=== PATIENT | female | born 1995 | race Two or more races ===

== ENCOUNTER → 2019-10-31 | Emergency (ER) | payer SELFPAY ==
[~2019-10-31] VITALS: Ht 152.4 cm; Wt 45.4 kg
[~2019-10-31] MED LIST: ACETAMINOPHEN 325 MG TAB PO ONE; ACETAMINOPHEN 500 MG TAB PO ONE; POTASSIUM CHL 20 Meq TABLET PO ONE
[2019-10-31 18:11] LABS: Basophils # (auto) 0 uL; Basophils % (auto) 0.4 % (0.0-2.0); Eosinophils # (auto) 0 uL; Eosinophils % (auto) 0.3 % (0.0-7.0); Hematocrit 32.7 % (36.0-46.0); Hemoglobin 11.1 g/dL (12.2-16.2); Lymphocytes # (auto) 0.8 uL; Lymphocytes % (auto) 11.1 % (10.0-50.0); Mean Corpuscular Hemoglobin 29.7 pg (28.0-32.0); Mean Corpuscular Hgb Conc. 33.8 g/dL (32.0-36.0); Mean Corpuscular Volume 87.7 fL (80.0-100.0); Monocytes # (auto) 0.6 uL; Monocytes % (auto) 9.6 % (0.0-12.0); Neutrophils # (auto) 5.3 uL; Neutrophils % (auto) 78.6 % (37.0-80.0); Nucleated Red Blood Cells % 0.1 %; Platelet Count (auto) 252 10^3/uL (140-450); Red Blood Cells 3.73 10^6/uL (4.0-5.20); Red Cell Distribution Width 13.6 % (11.8-14.3); White Blood Cell 6.8 10^3/uL (4.4-10.8)
[2019-10-31 18:27] LABS: Albumin 3.6 g/dL (3.4-5.0); Calcium 8.4 mg/dL (8.5-10.1)
[2019-10-31 18:30] LABS: BUN/Creatinine Ratio 8.6; Bilirubin, Total 0.4 mg/dL (0.2-1.0); Total Protein 7.9 g/dL (6.4-8.2)
[2019-10-31 22:31] LABS: Urine Bacteria MOD /hpf (None Seen); Urine Blood TRACE /uL (Negative); Urine Mucus FEW (None Seen); Urine Specific Gravity 1.012 (1.001-1.035); Urine WBC 70 /hpf (0 - 5)
[2019-10-31 22:46] LABS: Amphetamine Screen, Urine NEGATIVE (NEGATIVE); Barbiturate Scree,Urine NEGATIVE (NEGATIVE); Benzodiazephine Screen, Urine NEGATIVE (NEGATIVE); Cannabinoid Screen, Urine NEGATIVE (NEGATIVE); Cocaine Screen, Urine NEGATIVE (NEGATIVE); Opiate Scree,Urine NEGATIVE (NEGATIVE); Phencyclidine Screen, Urine NEGATIVE (NEGATIVE)
[2019-11-01 00:15] VITALS: BP 102/60
== END | disposition home or self-care (01) ==
LOC: EDUNIT# 17:11 → ER 17:20 → EDBD 17:20
DX: E87.6 Hypokalemia (principal); D64.9 Anemia, unspecified; R94.5 Abnormal results of liver function studies; Z88.6 Allergy status to analgesic agent
CPT/HCPCS: 36415; 70450; 72125; 80053; 80307; 81001; 83605; 84702; 85025

== ENCOUNTER 2019-11-27 23:10 | Emergency (ER) | payer SELFPAY ==
[~2019-11-27] VITALS: Ht 152.4 cm; Wt 54.4 kg
[2019-11-28] MEDS ORDERED: IOHEXOL 300 MG/ML 100ML BOTTLE IJ ONE (00:14)
[2019-11-28 00:50] LABS: Basophils # (auto) 0 10 ^3/uL (0-0.2); Basophils % (auto) 0.4 % (0.0-2.0); Eosinophils # (auto) 0.3 10 ^3/uL (0-0.8); Eosinophils % (auto) 4.4 % (0.0-7.0); Hemoglobin 12.9 g/dL (12.2-16.2); Lymphocytes # (auto) 1.9 10 ^3/uL (0.4-5.4); Lymphocytes % (auto) 26.8 % (10.0-50.0); Mean Corpuscular Hemoglobin 29.7 pg (28.0-32.0); Mean Corpuscular Hgb Conc. 33.9 g/dL (32.0-36.0); Mean Corpuscular Volume 87.7 fL (80.0-100.0); Monocytes # (auto) 0.6 10 ^3/uL (0-1.3); Monocytes % (auto) 8.7 % (0.0-12.0); Neutrophils # (auto) 4.3 10 ^3/uL (1.6-8.6); Neutrophils % (auto) 59.7 % (37.0-80.0); Platelet Count (auto) 265 10^3/uL (140-450); Red Blood Cells 4.33 10^6/uL (4.0-5.20); White Blood Cell 7.3 10^3/uL (4.4-10.8)
[2019-11-28] MEDS ORDERED: ONDANSETRON HCL 4 MG/2 ML VIAL IV ONE (01:00)
[2019-11-28 01:09] LABS: Alanine Aminotransferase 32 U/L (13-56); Albumin 3.3 g/dL (3.4-5.0); Amylase 67 U/L (25-115); Anion Gap 3 (5-15); Aspartate Aminotransferase 20 U/L (15-37); BUN/Creatinine Ratio 16.7; Blood Alcohol < 3.0 mg/dL (0-5); Blood Urea Nitrogen 9 mg/dL (7-18); Calcium 8.6 mg/dL (8.5-10.1); Carbon Dioxide 29 mmol/L (21-32); Chloride 102 mmol/L (98-107); GFR African American 176 mL/min; GFR Non-African American 145 mL/min; Glucose 114 mg/dL (74-106); Lipase 194 U/L (73-393); Potassium 3.6 mmol/L (3.5-5.1); Sodium 134 mmol/L (136-145)
[2019-11-28 01:12] LABS: Alkaline Phosphatase 80 U/L (45-117); Bilirubin, Total 0.2 mg/dL (0.2-1.0); Total Protein 7.8 g/dL (6.4-8.2)
[2019-11-28 01:13] LABS: Salicylate < 1.7 mg/dL (2.8-20.0)
[2019-11-28 01:14] LABS: Acetaminophen < 2.0 ug/mL (10-30)
[2019-11-28 01:30] VITALS: BP 91/51
[2019-11-28] MEDS ORDERED: LORazepam 0.5 MG TAB PO ONE (01:30)
== END 2019-11-28 02:31 | disposition left against medical advice (07) ==
LOC: ER 23:10 → EDBD 23:10 → EDUNIT# 23:10 → ER 11-28 02:31
DX: R11.10 Vomiting, unspecified (principal); F44.9 Dissociative and conversion disorder, unspecified; Z53.29 Procedure and treatment not carried out because of patient's decision for other reasons; Z88.6 Allergy status to analgesic agent
CPT/HCPCS: 36415; 70491; 80053; 80320; 80329; 82150; 83690; 84702; 85025; 96374

== ENCOUNTER 2020-01-03 08:10 | Emergency (ER) | payer SELFPAY ==
[~2020-01-03] VITALS: Ht 152.4 cm; Wt 45.0 kg
[2020-01-03 08:18] VITALS: BP 102/62
[2020-01-03 08:51] LABS: Basophils # (auto) 0 10 ^3/uL (0-0.2); Basophils % (auto) 0.7 % (0.0-2.0); Eosinophils # (auto) 0.2 10 ^3/uL (0-0.8); Hematocrit 35.8 % (36.0-46.0); Lymphocytes # (auto) 1.2 10 ^3/uL (0.4-5.4); Lymphocytes % (auto) 24.6 % (10.0-50.0); Mean Corpuscular Hemoglobin 29.9 pg (28.0-32.0); Mean Corpuscular Hgb Conc. 33.4 g/dL (32.0-36.0); Mean Corpuscular Volume 89.5 fL (80.0-100.0); Monocytes # (auto) 0.5 10 ^3/uL (0-1.3); Monocytes % (auto) 10.3 % (0.0-12.0); Neutrophils % (auto) 60.4 % (37.0-80.0); Nucleated Red Blood Cells % 0.2 %; Platelet Count (auto) 270 10^3/uL (140-450); Red Cell Distribution Width 14.2 % (11.8-14.3); White Blood Cell 4.9 10^3/uL (4.4-10.8)
[2020-01-03 09:10] LABS: Albumin 3.7 g/dL (3.4-5.0); Calcium 8.4 mg/dL (8.5-10.1); Potassium 3.5 mmol/L (3.5-5.1)
[2020-01-03 09:13] LABS: BUN/Creatinine Ratio 12.1; Bilirubin, Total 0.3 mg/dL (0.2-1.0); Total Protein 7.8 g/dL (6.4-8.2)
[2020-01-03 09:13] LABS: Urine Bacteria NONE SEEN /hpf (None Seen); Urine Blood 3+ /uL (Negative); Urine Mucus FEW (None Seen); Urine Specific Gravity 1.025 (1.001-1.035); Urine WBC 259 /hpf (0 - 5); Urine WBC Clumps PRESENT /hpf (None Seen)
== END 2020-01-03 09:36 | disposition home or self-care (01) ==
LOC: ER 08:10
DX: N39.0 Urinary tract infection, site not specified (principal)
CPT/HCPCS: 36415; 80053; 81001; 81025; 83690; 84702; 85025

== ENCOUNTER 2020-01-16 14:21 | Emergency (ER) | payer SELFPAY ==
[~2020-01-16] VITALS: Ht 149.9 cm; Wt 44.9 kg
[2020-01-16 16:01] LABS: Urine Bacteria MOD /hpf (None Seen); Urine Blood Negative /uL (Negative); Urine Mucus FEW (None Seen); Urine Specific Gravity 1.028 (1.001-1.035); Urine WBC 28 /hpf (0 - 5)
[2020-01-16 17:10] VITALS: BP 95/61
== END 2020-01-16 17:14 | disposition home or self-care (01) ==
LOC: ER 14:21
DX: R42 Dizziness and giddiness (principal); N39.0 Urinary tract infection, site not specified
CPT/HCPCS: 70450; 81001; 81025

== ENCOUNTER 2020-04-08 11:50 | Emergency (ER) | payer SELFPAY ==
[~2020-04-08] VITALS: Ht 124.5 cm; Wt 42.6 kg
[2020-04-08 12:49] VITALS: BP 105/59
== END 2020-04-08 13:13 | disposition home or self-care (01) ==
LOC: ER 11:50
DX: Z32.01 Encounter for pregnancy test, result positive (principal); R11.2 Nausea with vomiting, unspecified; Z88.6 Allergy status to analgesic agent
CPT/HCPCS: 81002; 81025

== ENCOUNTER 2020-05-17 12:54 | Inpatient (IN) | payer MEDICAID ==
[~2020-05-17] VITALS: Ht 124.5 cm; Wt 48.5 kg
[2020-05-17 13:49] LABS: Urine Amorphous Crystal FEW /hpf (None Seen); Urine Bacteria FEW /hpf (None Seen); Urine Blood Negative /uL (Negative); Urine Mucus FEW (None Seen); Urine Specific Gravity 1.021 (1.001-1.035); Urine WBC 23 /hpf (0 - 5); Urine WBC Clumps PRESENT /hpf (None Seen)
[2020-05-17] MEDS ORDERED: ONDANSETRON HCL 4 MG/2 ML VIAL ONE (14:11)
[2020-05-17 14:26] LABS: Albumin 3.6 g/dL (3.4-5.0); Calcium 8.8 mg/dL (8.5-10.1)
[2020-05-17 14:29] LABS: BUN/Creatinine Ratio 12.8; Bilirubin, Total 0.3 mg/dL (0.2-1.0); Total Protein 7.8 g/dL (6.4-8.2)
[2020-05-17 14:30] LABS: Basophils # (auto) 0 10 ^3/uL (0-0.2); Basophils % (auto) 0.2 % (0.0-2.0); Eosinophils # (auto) 0.3 10 ^3/uL (0-0.8); Eosinophils % (auto) 2.5 % (0.0-7.0); Hematocrit 35.6 % (36.0-46.0); Hemoglobin 11.8 g/dL (12.2-16.2); Lymphocytes # (auto) 2.3 10 ^3/uL (0.4-5.4); Lymphocytes % (auto) 22.8 % (10.0-50.0); Mean Corpuscular Hgb Conc. 33.3 g/dL (32.0-36.0); Mean Corpuscular Volume 90.2 fL (80.0-100.0); Monocytes # (auto) 0.7 10 ^3/uL (0-1.3); Monocytes % (auto) 6.8 % (0.0-12.0); Neutrophils % (auto) 67.7 % (37.0-80.0); Platelet Count (auto) 293 10^3/uL (140-450); Red Blood Cells 3.95 10^6/uL (4.0-5.20); Red Cell Distribution Width 14.4 % (11.8-14.3); White Blood Cell 10.3 10^3/uL (4.4-10.8)
[2020-05-17] MEDS ORDERED: ONDANSETRON HCL 4 MG/2 ML VIAL IV ONE (14:30)
[2020-05-17] MEDS ORDERED: SODIUM CHLORIDE 0.9% 1,000 ML IV ONE ×2 (14:45→21:00)
[2020-05-17 15:07] LABS: Potassium 2.8 mmol/L (3.5-5.1)
[2020-05-17] MEDS ORDERED: SODIUM CHLORIDE 0.9% 1,000 ML IVB ONE (15:07)
[2020-05-17] MEDS ORDERED: MEPERIDINE HCL (25 MG/ML) 1ML VIAL IM ONE (16:00)
[2020-05-17] MEDS ORDERED: PROMETHAZINE HCL 25 MG/ML 1ML IM ONE (16:00)
[2020-05-17] MEDS: POTASSIUM CHL 20MEQ/100ML 100 ML IV SCH ×2 (18:00→20:47)
[2020-05-17] MEDS ORDERED: PROMETHAZINE HCL 25 MG/ML 1ML IV ONE (21:00)
[2020-05-17] MEDS ORDERED: ONDANSETRON HCL 4 MG/2 ML VIAL IV PRN (23:15)
[2020-05-17] MEDS ORDERED: DOCUSATE SOD 100 MG CAP PO PRN (23:15)
--- NOTE | 2020-05-18 00:15 | NUR ---
MS admit from [facility] admitted to [facility] after SBAR received. Patient oriented to BRYON JOHNSON, RN primary RN, unit, room, bed, and unit policies regarding patient care and visiting hours. Patient encouraged to call if they need something, all questions and concerns addressed, patient verbalized understanding. Will continue to monitor.
[2020-05-18 00:20] VITALS: BP 112/71
[2020-05-18] MEDS: ACETAMINOPHEN 325 MG TAB PO PRN ×3 (00:35→21:29)
--- NOTE | 2020-05-18 00:35 | NUR ---
Pain Medication Administration Patient complaining of abdominal pain 10/10. Patient requesting Tylenol. Educated patient regarding pain and pain medications. Patient verbalized understanding, continues to request Tylenol. Will administer pain medication per MD order and will continue to monitor.
[2020-05-18] MEDS: SODIUM CHLORIDE 0.9% 1,000 ML IV SCH ×3 (00:59→17:48)
[2020-05-18] MEDS ORDERED: MULT-1018 PO (01:14)
--- NOTE | 2020-05-18 01:35 | NUR ---
Pain Level Reassessment Patient asleep for pain level reassessment. Pain rated to be 0/10 using Flacc Pain Scale. No signs or symptoms of distress noted. Will continue to monitor.
[2020-05-18 05:00] VITALS: BP 95/58
--- NOTE | 2020-05-18 08:00 | NUR ---
Opening Shift Note Assumed care of patient, asleep, even, unlabored respirations. No S/S of distress/SOB or pain. Bed in lowest/locked position, bed rails up x2, call light within reach. Will continue to monitor for changes Q1hr and PRN.
[2020-05-18 08:09] LABS: Basophils # (auto) 0 10 ^3/uL (0-0.2); Basophils % (auto) 0.2 % (0.0-2.0); Eosinophils # (auto) 0 10 ^3/uL (0-0.8); Eosinophils % (auto) 0.3 % (0.0-7.0); Hematocrit 30.4 % (36.0-46.0); Hemoglobin 10.1 g/dL (12.2-16.2); Lymphocytes # (auto) 1.3 10 ^3/uL (0.4-5.4); Lymphocytes % (auto) 11.5 % (10.0-50.0); Mean Corpuscular Hemoglobin 29.9 pg (28.0-32.0); Mean Corpuscular Hgb Conc. 33.3 g/dL (32.0-36.0); Mean Corpuscular Volume 89.8 fL (80.0-100.0); Monocytes # (auto) 0.6 10 ^3/uL (0-1.3); Monocytes % (auto) 5.3 % (0.0-12.0); Neutrophils # (auto) 9.6 10 ^3/uL (1.6-8.6); Neutrophils % (auto) 82.7 % (37.0-80.0); Platelet Count (auto) 220 10^3/uL (140-450); Red Blood Cells 3.39 10^6/uL (4.0-5.20); White Blood Cell 11.6 10^3/uL (4.4-10.8)
[2020-05-18 08:28] LABS: Potassium 3.4 mmol/L (3.5-5.1)
[2020-05-18 08:38] LABS: BUN/Creatinine Ratio 7.4; Calcium 7.8 mg/dL (8.5-10.1)
[2020-05-18 09:00] VITALS: BP 93/56
[2020-05-18] MEDS ORDERED: PRENATAL VITAMIN TAB PO ONE (11:00)
--- NOTE | 2020-05-18 11:10 | NUR ---
ROUNDS DR GIPSON DISCUSSING POC WITH THIS RN. NEW ORDERS RECEIVED/WILL CARRY OUT. WILL CONTINUE TO MONITOR
--- NOTE | 2020-05-18 12:41 | NUR ---
Nutrition Consult Monitor pt po intake and tolerance of diet. pt reports nausea and vomiting is better Est energy needs 7828-0097 kcal (30-35 kcal/kg BW 48.5kg) Est protein needs 49-58g (1-1.2g/kg BW 48.5kg) Will reassess prn. Addendum: 05/18/20 at [address] Amended: Links added.
[2020-05-18] MEDS: POTASSIUM CHL 20MEQ/100ML 100 ML IV SCH ×2 (12:43→14:20)
[2020-05-18 12:47] VITALS: BP 83/42
[2020-05-18] MEDS ORDERED: CEFTRIAXONE SODIUM 2 GM in D5W 5% 50 ML IV ONE (13:00)
--- NOTE | 2020-05-18 13:00 | NUR ---
MD ROUNDS DR ESTRADA AT BEDSIDE DISCUSSING POC WITH PATIENT. NEW ORDERS RECEIVED/WILL CARRY OUT. WILL CONTINUE TO MONITOR
[2020-05-18] MEDS ORDERED: cefTRIAXone 1GM/50ML D5W 50 ML IV ONE (13:15)
[2020-05-18 17:00] VITALS: BP 88/58
--- NOTE | 2020-05-18 21:29 | NUR ---
Pain Medication Administration Patient complaining of abdominal pain 05/22. Patient requesting Tylenol. Will administer pain medication per MD order and will continue to monitor.
[2020-05-18 22:00] VITALS: BP 95/55
--- NOTE | 2020-05-18 22:29 | NUR ---
Pain Level Reassessment Patient's pain level reassessed to be 1/10. No signs or symptoms of distress noted. Will continue to monitor.
[2020-05-19] MEDS: SODIUM CHLORIDE 0.9% 1,000 ML IV SCH ×2 (03:30→14:58)
[2020-05-19 05:00] VITALS: BP 84/52
[2020-05-19 05:39] LABS: Potassium 3.6 mmol/L (3.5-5.1)
[2020-05-19 05:42] LABS: BUN/Creatinine Ratio 16.7
[2020-05-19 05:47] LABS: % Iron Saturation 11.4 % (15-50)
[2020-05-19 06:26] VITALS: BP 94/56
--- NOTE | 2020-05-19 07:45 | NUR ---
Opening shift note Assumed care of patient from NOC RN. Patient is AOx4, so s/s of SOB or distress noted. Bed is in lowest locked position, side rails up x2, and call light is within reach. Educated patient on how to use call light, patient verbalized understanding. Updated patient on plan of care, patient verbalized understanding. Will continue to monitor q1hr and PRN.
[2020-05-19 09:00] VITALS: BP 84/48
[2020-05-19] MEDS: PANTOPRAZOLE 40 MG/10 ML VIAL INJ IV SCH (09:41)
[2020-05-19] MEDS: PRENATAL VITAMIN TAB PO SCH (09:41)
[2020-05-19 13:00] VITALS: BP 90/53
--- NOTE | 2020-05-19 13:00 | NUR ---
Paged Pagekeith Ervin awaiting call back.
--- NOTE | 2020-05-19 16:45 | NUR ---
Paged Pagekeith Ervin awaiting call back.
[2020-05-19 17:00] VITALS: BP 100/63
--- NOTE | 2020-05-19 17:55 | NUR ---
Spoke with family Spoke with patients mother per patient request. Updated Hayley about patient status, Hayley verbalized understanding.
--- NOTE | 2020-05-19 19:03 | NUR ---
End of shift note Endorsed care to NOC CHANDRIKA Jimenez. No s/s of distress noted.
--- NOTE | 2020-05-19 19:15 | NUR ---
Opening Shift Note Assumed care of patient, awake and alert. No S/S of distress/SOB or pain. Instructed on POC and to call for assist PRN, will continue to monitor for changes Q1hr and PRN. Patient in the lowest possible position with call light within reach.
[2020-05-19 21:53] VITALS: BP 109/55
[2020-05-20] MEDS: SODIUM CHLORIDE 0.9% 1,000 ML IV SCH ×2 (01:18→11:08)
--- NOTE | 2020-05-20 04:00 | NUR ---
Patient to be observed over night for blood pressure as she was having low BP. Patients blood pressure has been going up. Latest BP was 109/55, will continue to monitor. Addendum: 05/20/20 at 0401 by Barbara Alex RN Amended: Links added.
[2020-05-20 04:30] VITALS: BP 98/56
[2020-05-20 06:16] LABS: Basophils # (auto) 0 10 ^3/uL (0-0.2); Basophils % (auto) 0.3 % (0.0-2.0); Eosinophils # (auto) 0.3 10 ^3/uL (0-0.8); Eosinophils % (auto) 4.5 % (0.0-7.0); Hematocrit 28.8 % (36.0-46.0); Lymphocytes # (auto) 1.7 10 ^3/uL (0.4-5.4); Lymphocytes % (auto) 25.2 % (10.0-50.0); Mean Corpuscular Hemoglobin 30.9 pg (28.0-32.0); Mean Corpuscular Hgb Conc. 34.8 g/dL (32.0-36.0); Mean Corpuscular Volume 88.8 fL (80.0-100.0); Monocytes # (auto) 0.4 10 ^3/uL (0-1.3); Monocytes % (auto) 6.5 % (0.0-12.0); Neutrophils # (auto) 4.3 10 ^3/uL (1.6-8.6); Neutrophils % (auto) 63.5 % (37.0-80.0); Platelet Count (auto) 231 10^3/uL (140-450); Red Blood Cells 3.24 10^6/uL (4.0-5.20); Red Cell Distribution Width 14.3 % (11.8-14.3); White Blood Cell 6.8 10^3/uL (4.4-10.8)
[2020-05-20 06:34] LABS: Magnesium 1.9 mg/dL (1.6-2.6); Potassium 3.4 mmol/L (3.5-5.1)
[2020-05-20 09:00] VITALS: BP 93/60
[2020-05-20] MEDS ORDERED: FERROUS SULFATE 325 MG TAB PO ONE (09:30)
[2020-05-20] MEDS ORDERED: POTASSIUM CHL 20 Meq TABLET PO ONE (09:30)
[2020-05-20] MEDS: PRENATAL VITAMIN TAB PO SCH (10:04)
[2020-05-20] MEDS: PANTOPRAZOLE 40 MG/10 ML VIAL INJ IV SCH (10:04)
--- NOTE | 2020-05-20 10:55 | NUR ---
Physician rounding Dr. Christian at bedside. MD Updated patient on plan of care and patient verbalized understanding. Will continue to monitor q1hr and PRN.
[2020-05-20] MEDS ORDERED: FERROUS SULFATE 325 MG TAB PO SCH (12:00)
[2020-05-20 13:00] VITALS: BP_SYST 110; BP_SYST 93; BP_DIAS 58; BP_DIAS 59
[2020-05-20 14:23] VITALS: BP 93/58
--- NOTE | 2020-05-20 15:10 | NUR ---
Discharge note Discharge instructions given as ordered. Encourage to follow up with PMD as instructed. All questions and concerns addressed. Patient verbalized understanding. IV removed with catheter intact, pressure dressing applied. Patient stated "I want to walk and wait at the lobby" all personal belongings with patient, accompanied by staff member. No distress noted at time of departure.
--- NOTE | 2020-05-20 15:16 | NUR ---
assessment Patient is a 24 year old female who is alert and oriented. Patients cognitive abilities are intact. Prior to admission patient lived home with family and functioned independently. Patient informed me she is able to care for her own ADLs. Per patient she will return home to her prior living arrangements post discharge and family will transport her home. Patient has no insurance. Patient will be assessed by Robson Guerrero of [facility]. Patient will qualify for [employer]. Patient has already applied for Medi-nehemias since she is . I have provided patient with resources for [facility], Dr[facility] Damico, and [facility] urgent care for follow up visits. I have provided patient with a prescription card from community assistance program.I informed patient she has a right to speak to a social services regarding all care. I informed patient she has a right to participate in any and all discharge planning. Patient does not have a POA and advanced directive. I have offered patient information on POA and advanced directives. I informed the patient the advantages and benefits of having an Advanced Directive. Patient verbalized understanding and agreed to discharge plan. Addendum: 05/20/20 at 1519 by Rajwinder CHAPARRO Amended: Links added.
== END 2020-05-20 15:10 | disposition home or self-care (01) | DRG 566 ==
LOC: ER 12:54 → WEST WING 12:55
PROVIDERS: ADMIT Hospitalist; ATTEND Internal Medicine Nephrology
DX: O21.1 Hyperemesis gravidarum with metabolic disturbance (principal); R65.10 Systemic inflammatory response syndrome (SIRS) of non-infectious origin without acute organ dysfunction; E86.0 Dehydration; E66.9 Obesity, unspecified; O99.281 Endocrine, nutritional and metabolic diseases complicating pregnancy, first trimester; Z3A.11 11 weeks gestation of pregnancy; O99.211 Obesity complicating pregnancy, first trimester; D50.9 Iron deficiency anemia, unspecified; O99.011 Anemia complicating pregnancy, first trimester; Z88.5 Allergy status to narcotic agent; Z82.49 Family history of ischemic heart disease and other diseases of the circulatory system
CPT/HCPCS: 36415; 76801; 80048; 80053; 80061; 81001; 83540; 83550; 83735; 84132; 84439; 84443; 84702; 85025; 99291; C9113; G0378; J0696; J2405; J3480; J7060

== ENCOUNTER 2020-06-27 23:21 | Emergency (ER) | payer MEDICAID ==
[~2020-06-27] VITALS: Ht 149.9 cm; Wt 48.5 kg
[~2020-06-27 23:21] MED LIST changes: -ACETAMINOPHEN 325 MG TAB PO ONE; -ACETAMINOPHEN 500 MG TAB PO ONE; +MULT-1018 PO; -POTASSIUM CHL 20 Meq TABLET PO ONE
[2020-06-27 23:43] LABS: Urine WBC None Seen /hpf (0 - 5)
[2020-06-27] MEDS ORDERED: SODIUM CHLORIDE 0.9% 1,000 ML IV ONE (23:45)
[2020-06-27] MEDS ORDERED: ACETAMINOPHEN 325 MG TAB PO ONE (23:45)
[2020-06-27] MEDS ORDERED: PROMETHAZINE HCL 25 MG/ML 1ML IV ONE (23:45)
[2020-06-27 23:49] LABS: Basophils # (auto) 0 10 ^3/uL (0-0.2); Basophils % (auto) 0.3 % (0.0-2.0); Eosinophils # (auto) 0.3 10 ^3/uL (0-0.8); Eosinophils % (auto) 2.1 % (0.0-7.0); Hematocrit 34.6 % (36.0-46.0); Hemoglobin 11.8 g/dL (12.2-16.2); Lymphocytes # (auto) 2.4 10 ^3/uL (0.4-5.4); Lymphocytes % (auto) 15.5 % (10.0-50.0); Monocytes # (auto) 0.7 10 ^3/uL (0-1.3); Monocytes % (auto) 4.5 % (0.0-12.0); Neutrophils # (auto) 11.9 10 ^3/uL (1.6-8.6); Neutrophils % (auto) 77.6 % (37.0-80.0); Platelet Count (auto) 285 10^3/uL (140-450); Red Cell Distribution Width 14.4 % (11.8-14.3); White Blood Cell 15.3 10^3/uL (4.4-10.8)
[2020-06-28 00:04] LABS: Urine Bacteria NONE SEEN /hpf (None Seen); Urine Blood Negative /uL (Negative); Urine Specific Gravity 1.016 (1.001-1.035); Urine WBC Clumps PRESENT /hpf (None Seen)
[2020-06-28 00:07] LABS: Albumin 3.5 g/dL (3.4-5.0); Calcium 9.3 mg/dL (8.5-10.1); Potassium 3.5 mmol/L (3.5-5.1)
[2020-06-28 00:09] LABS: Alcohol, Urine < 3.0 mg/dL (0-10); Amphetamine Screen, Urine NEGATIVE (NEGATIVE); Barbiturate Scree,Urine NEGATIVE (NEGATIVE); Benzodiazephine Screen, Urine NEGATIVE (NEGATIVE); Cannabinoid Screen, Urine NEGATIVE (NEGATIVE); Cocaine Screen, Urine NEGATIVE (NEGATIVE); Opiate Scree,Urine NEGATIVE (NEGATIVE); Phencyclidine Screen, Urine NEGATIVE (NEGATIVE)
[2020-06-28 00:10] LABS: BUN/Creatinine Ratio 14.9; Bilirubin, Total 0.2 mg/dL (0.2-1.0); Total Protein 7.7 g/dL (6.4-8.2)
[2020-06-28] MEDS ORDERED: SODIUM CHLORIDE 0.9% 1,000 ML IV ONE ×2 (00:15→03:00)
[2020-06-28] MEDS ORDERED: PROMETHAZINE HCL 25 MG/ML 1ML IV ONE (00:15)
[2020-06-28] MEDS ORDERED: cefTRIAXone 1GM/50ML D5W 50 ML IV ONE (01:15)
--- NOTE | 2020-06-28 03:30 | NUR ---
Request from SHUN Box for UC pattern tracing on patient. Patient gives OB history of with 2 SAB's, 18.2 weeks EGA patient of clinic in [place]. Patient denies knowing the name of her primary OB. TOCO placed on patient and patient monitored for 30 minutes. 3 mild UC's traced lasting 40 seconds. Uterine irritability noted. Patient's abdomen palpates relaxed and soft between UC's. Strip reviewed with primary RN, Josefina and Attending Isauro HOFFMANN. Isauro HOFFMANN encouraged to follow up with steam bone press tender OB.
[2020-06-28] MEDS ORDERED: TERBUTALINE SULFATE 1 MG/ML 1ML VIAL SC ONE (03:45)
[2020-06-28 05:39] VITALS: BP 95/59
== END 2020-06-28 05:45 | disposition home or self-care (01) ==
LOC: ER 23:22
DX: O23.32 Infections of other parts of urinary tract in pregnancy, second trimester (principal); O47.9 False labor, unspecified; O99.012 Anemia complicating pregnancy, second trimester; J45.909 Unspecified asthma, uncomplicated; Z98.890 Other specified postprocedural states; Z3A.17 17 weeks gestation of pregnancy
CPT/HCPCS: 36415; 76805; 80053; 80307; 81001; 82150; 83690; 84702; 85025; 96361; 96365; 96372; 96375; 96376; 99285; J0696; J2550; J3105; J7030

== ENCOUNTER 2020-10-30 19:24 | Observation (INO) | payer MEDICAID ==
[~2020-10-30] VITALS: Ht 149.9 cm; Wt 66.7 kg
[2020-10-30] MEDS ORDERED: TERBUTALINE SULFATE 1 MG/ML 1ML VIAL SC SCH (21:30)
[2020-10-30] MEDS ORDERED: TERBUTALINE SULFATE 1 MG/ML 1ML VIAL SC ONE (21:40)
== END 2020-10-30 23:22 | disposition home or self-care (01) ==
LOC: ER 19:24 → LDRP 19:43 → ER 19:43 → LDRP 19:45
PROVIDERS: ADMIT Obstetrics & Gynecology; ATTEND Obstetrics & Gynecology
DX: O36.8130 Decreased fetal movements, third trimester, not applicable or unspecified (principal); O99.513 Diseases of the respiratory system complicating pregnancy, third trimester; J45.909 Unspecified asthma, uncomplicated; Z3A.34 34 weeks gestation of pregnancy; Z79.899 Other long term (current) drug therapy
CPT/HCPCS: 59025; 76818; 81002; 82962; 96372; 99284; G0378; J3105

== ENCOUNTER 2021-03-13 21:35 | Emergency (ER) | payer MEDICAID ==
[~2021-03-13] VITALS: Ht 165.1 cm; Wt 52.2 kg
[2021-03-13] MEDS ORDERED: ALBUTEROL SULF 2.5 MG/0.5ML(0.5%) NEB SOLN NEB ONE (22:00)
[2021-03-13] MEDS ORDERED: IPRATROPIUM BROM 0.5 MG/2.5ML INH SOL NEB ONE (22:00)
[2021-03-13 22:18] LABS: Basophils # (auto) 0 10 ^3/uL (0-0.2); Basophils % (auto) 0.5 % (0.0-2.0); Eosinophils # (auto) 0.4 10 ^3/uL (0-0.8); Eosinophils % (auto) 5.9 % (0.0-7.0); Hematocrit 36.7 % (36.0-46.0); Lymphocytes % (auto) 30.9 % (10.0-50.0); Mean Corpuscular Hemoglobin 30.9 pg (28.0-32.0); Mean Corpuscular Hgb Conc. 35.4 g/dL (32.0-36.0); Mean Corpuscular Volume 87.2 fL (80.0-100.0); Monocytes # (auto) 0.6 10 ^3/uL (0-1.3); Monocytes % (auto) 9.2 % (0.0-12.0); Neutrophils # (auto) 3.4 10 ^3/uL (1.6-8.6); Neutrophils % (auto) 53.5 % (37.0-80.0); Platelet Count (auto) 324 10^3/uL (140-450); Red Blood Cells 4.21 10^6/uL (4.0-5.20); Red Cell Distribution Width 13.7 % (11.8-14.3); White Blood Cell 6.4 10^3/uL (4.4-10.8)
[2021-03-13 22:23] LABS: Albumin 3.9 g/dL (3.4-5.0); BUN/Creatinine Ratio 16.1; Calcium 9.1 mg/dL (8.5-10.1); Potassium 3.4 mmol/L (3.5-5.1)
[2021-03-13 22:26] LABS: Bilirubin, Total 0.2 mg/dL (0.2-1.0); Total Protein 8.8 g/dL (6.4-8.2)
[2021-03-14] MEDS ORDERED: methylPREDNISolone SOD SUCC 125 MG/2 ML VL IM ONE (01:15)
[2021-03-14 01:30] VITALS: BP 106/71
[2021-03-14] MEDS ORDERED: IPRATROPIUM BROM 0.5 MG/2.5ML INH SOL NEB ONE (04:00)
[2021-03-14] MEDS ORDERED: ALBUTEROL SULF 2.5 MG/0.5ML(0.5%) NEB SOLN NEB ONE (04:00)
[2021-03-14] MEDS ORDERED: guaiFENesin-DM 100/10mg/5ml SYR PO ONE (04:00)
== END 2021-03-14 04:56 | disposition home or self-care (01) ==
LOC: ER 21:35
DX: J45.909 Unspecified asthma, uncomplicated (principal); T50.B95A Adverse effect of other viral vaccines, initial encounter; Y92.89 Other specified places as the place of occurrence of the external cause
CPT/HCPCS: 36415; 71045; 80053; 85025; 85049; 94640; 96372; 99284; J2930; J7644

== ENCOUNTER 2021-03-30 21:31 | Emergency (ER) | payer MEDICAID ==
[~2021-03-30] VITALS: Ht 154.9 cm; Wt 47.2 kg
[2021-03-31 01:58] VITALS: BP 91/60
[2021-03-31] MEDS ORDERED: IPRATROPIUM BROM 0.5 MG/2.5ML INH SOL NEB ONE (02:15)
[2021-03-31] MEDS ORDERED: ALBUTEROL SULF 2.5 MG/0.5ML(0.5%) NEB SOLN NEB ONE (02:15)
== END 2021-03-31 04:28 | disposition home or self-care (01) ==
LOC: ER 21:32
DX: J45.901 Unspecified asthma with (acute) exacerbation (principal)
CPT/HCPCS: 94640; 99283; J7644

== ENCOUNTER 2021-08-02 23:27 | Emergency (ER) | payer MEDICAID ==
[~2021-08-02] VITALS: Ht 157.5 cm; Wt 47.2 kg
[2021-08-03 02:40] VITALS: BP 101/69
== END 2021-08-03 03:19 | disposition home or self-care (01) ==
LOC: ER 23:27
DX: H10.213 Acute toxic conjunctivitis, bilateral (principal); L30.9 Dermatitis, unspecified; Z57.5 Occupational exposure to toxic agents in other industries; J45.909 Unspecified asthma, uncomplicated; Z79.899 Other long term (current) drug therapy; Z88.5 Allergy status to narcotic agent

== ENCOUNTER 2021-08-28 00:29 | Emergency (ER) | payer MEDICAID ==
[~2021-08-28] VITALS: Ht 149.9 cm; Wt 46.3 kg
[2021-08-28] MEDS ORDERED: ALBUAER3 IN (03:33)
[2021-08-28 03:39] VITALS: BP 102/70
== END 2021-08-28 03:51 | disposition home or self-care (01) ==
LOC: ER 00:29
DX: J45.909 Unspecified asthma, uncomplicated (principal); Z76.0 Encounter for issue of repeat prescription; Z79.899 Other long term (current) drug therapy; Z88.5 Allergy status to narcotic agent

== ENCOUNTER 2021-11-11 02:56 | Emergency (ER) | payer MEDICAID ==
[~2021-11-11] VITALS: Ht 154.9 cm; Wt 45.4 kg
[~2021-11-11 02:56] MED LIST changes: +ALBUAER3 IN
[2021-11-11 03:42] LABS: Basophils # (auto) 0 10 ^3/uL (0-0.2); Basophils % (auto) 0.3 % (0.0-2.0); Eosinophils # (auto) 0.4 10 ^3/uL (0-0.8); Eosinophils % (auto) 5.6 % (0.0-7.0); Hematocrit 34.8 % (36.0-46.0); Hemoglobin 11.8 g/dL (12.2-16.2); Lymphocytes % (auto) 31.4 % (10.0-50.0); Mean Corpuscular Hemoglobin 29.9 pg (28.0-32.0); Mean Corpuscular Hgb Conc. 33.9 g/dL (32.0-36.0); Mean Corpuscular Volume 88.3 fL (80.0-100.0); Monocytes # (auto) 0.5 10 ^3/uL (0-1.3); Monocytes % (auto) 7.8 % (0.0-12.0); Neutrophils # (auto) 3.5 10 ^3/uL (1.6-8.6); Neutrophils % (auto) 54.9 % (37.0-80.0); Red Blood Cells 3.95 10^6/uL (4.0-5.20); Red Cell Distribution Width 13.6 % (11.8-14.3); White Blood Cell 6.4 10^3/uL (4.4-10.8)
[2021-11-11 03:59] LABS: Albumin 3.7 g/dL (3.4-5.0); BUN/Creatinine Ratio 13.8; Calcium 9.4 mg/dL (8.5-10.1); Potassium 3.6 mmol/L (3.5-5.1)
[2021-11-11 04:02] LABS: Bilirubin, Total 0.2 mg/dL (0.2-1.0); Total Protein 7.5 g/dL (6.4-8.2)
[2021-11-11 05:58] LABS: Urine Bacteria FEW /hpf (None Seen); Urine Blood Negative /uL (Negative); Urine Mucus FEW (None Seen); Urine Specific Gravity 1.021 (1.001-1.035); Urine WBC 21 /hpf (0 - 5); Urine WBC Clumps PRESENT /hpf (None Seen)
[2021-11-11 07:07] VITALS: BP 92/52
[2021-11-11] MEDS ORDERED: cefTRIAXone 1GM/50ML D5W 50 ML IV ONE (08:15)
[2021-11-11] MEDS ORDERED: MECLIZINE HCL 25 MG TAB PO ONE (08:15)
== END 2021-11-11 09:10 | disposition home or self-care (01) ==
LOC: ER 03:00
DX: H81.10 Benign paroxysmal vertigo, unspecified ear (principal); N39.0 Urinary tract infection, site not specified; J45.909 Unspecified asthma, uncomplicated; Z79.899 Other long term (current) drug therapy; Z88.5 Allergy status to narcotic agent
CPT/HCPCS: 36415; 70450; 80053; 81001; 84702; 85025; 96365; 99284; J0696; J8597

== ENCOUNTER 2022-05-06 00:50 | Emergency (ER) | payer MEDICAID ==
[~2022-05-06] VITALS: Ht 154.9 cm; Wt 46.2 kg
[2022-05-06 01:02] VITALS: BP 105/66
[2022-05-06 01:52] LABS: Basophils # (auto) 0 10 ^3/uL (0-0.2); Basophils % (auto) 0.4 % (0.0-2.0); Eosinophils # (auto) 0.3 10 ^3/uL (0-0.8); Eosinophils % (auto) 4.8 % (0.0-7.0); Hematocrit 34.9 % (36.0-46.0); Hemoglobin 11.8 g/dL (12.2-16.2); Lymphocytes # (auto) 2.3 10 ^3/uL (0.4-5.4); Lymphocytes % (auto) 36.4 % (10.0-50.0); Mean Corpuscular Hemoglobin 29.8 pg (28.0-32.0); Mean Corpuscular Hgb Conc. 33.9 g/dL (32.0-36.0); Mean Corpuscular Volume 87.8 fL (80.0-100.0); Monocytes # (auto) 0.6 10 ^3/uL (0-1.3); Monocytes % (auto) 8.8 % (0.0-12.0); Neutrophils # (auto) 3.1 10 ^3/uL (1.6-8.6); Neutrophils % (auto) 49.6 % (37.0-80.0); Nucleated Red Blood Cells % 0.1 %; Red Blood Cells 3.97 10^6/uL (4.0-5.20); White Blood Cell 6.3 10^3/uL (4.4-10.8)
[2022-05-06 02:16] LABS: Albumin 4.1 g/dL (3.4-5.0); Calcium 9.1 mg/dL (8.5-10.1); Potassium 3.8 mmol/L (3.5-5.1)
[2022-05-06 02:18] LABS: BUN/Creatinine Ratio 25.5
[2022-05-06 02:21] LABS: Bilirubin, Total 0.2 mg/dL (0.2-1.0)
== END 2022-05-06 03:00 | disposition left against medical advice (07) ==
LOC: ER 00:50
DX: R07.89 Other chest pain (principal); R42 Dizziness and giddiness; Z53.21 Procedure and treatment not carried out due to patient leaving prior to being seen by health care provider
CPT/HCPCS: 36415; 71045; 80053; 83880; 84484; 85025; 93005

== ENCOUNTER 2023-01-14 03:48 | Observation (INO) | payer MEDICAID ==
[~2023-01-14] VITALS: Ht 154.9 cm; Wt 52.2 kg
[2023-01-14 05:59] LABS: Urine Bacteria MOD /hpf (None Seen); Urine Blood Negative /uL (Negative); Urine Specific Gravity 1.005 (1.001-1.035); Urine WBC 4 /hpf (0 - 5)
[2023-01-14 06:07] LABS: Alcohol, Urine < 3.0 mg/dL (0-10); Amphetamine Screen, Urine NEGATIVE (NEGATIVE); Barbiturate Scree,Urine NEGATIVE (NEGATIVE); Benzodiazephine Screen, Urine NEGATIVE (NEGATIVE); Cannabinoid Screen, Urine NEGATIVE (NEGATIVE); Cocaine Screen, Urine NEGATIVE (NEGATIVE); Opiate Scree,Urine NEGATIVE (NEGATIVE); Phencyclidine Screen, Urine NEGATIVE (NEGATIVE)
== END 2023-01-14 06:41 | disposition home or self-care (01) ==
LOC: LDRP 03:48
PROVIDERS: ADMIT Obstetrics & Gynecology; ATTEND Obstetrics & Gynecology
DX: O26.892 Other specified pregnancy related conditions, second trimester (principal); R10.30 Lower abdominal pain, unspecified; Z3A.23 23 weeks gestation of pregnancy
CPT/HCPCS: 59025; 80307; 81001; 81002; 82948; 94760; G0378

== ENCOUNTER 2023-02-27 16:20 | Observation (INO) | payer MEDICAID ==
[2023-02-27] MEDS ORDERED: PREN-96 PO (16:55)
== END 2023-02-27 17:03 | disposition home or self-care (01) ==
LOC: LDRP 16:20
PROVIDERS: ADMIT Obstetrics & Gynecology; ATTEND Obstetrics & Gynecology
DX: O62.9 Abnormality of forces of labor, unspecified (principal); Z3A.30 30 weeks gestation of pregnancy
CPT/HCPCS: 59025; 81002; 82962; 94760; G0378

== ENCOUNTER 2024-04-21 23:02 | Inpatient (IN) | payer MEDICAID ==
[~2024-04-21] VITALS: Ht 154.9 cm; Wt 48.0 kg
[~2024-04-21 23:02] MED LIST changes: +PREN-96 PO
[2024-04-21 23:57] LABS: Basophils # (auto) 0 10 ^3/uL (0-0.2); Basophils % (auto) 0.2 % (0.0-2.0); Eosinophils # (auto) 0.2 10 ^3/uL (0-0.8); Eosinophils % (auto) 2.5 % (0.0-7.0); Hematocrit 37.3 % (36.0-46.0); Hemoglobin 12.7 g/dL (12.2-16.2); Lymphocytes # (auto) 3.2 10 ^3/uL (0.4-5.4); Lymphocytes % (auto) 36.6 % (10.0-50.0); Mean Corpuscular Hemoglobin 30.2 pg (28.0-32.0); Mean Corpuscular Volume 88.8 fL (80.0-100.0); Monocytes # (auto) 0.6 10 ^3/uL (0-1.3); Monocytes % (auto) 7.1 % (0.0-12.0); Neutrophils # (auto) 4.7 10 ^3/uL (1.6-8.6); Neutrophils % (auto) 53.6 % (37.0-80.0); Platelet Count (auto) 318 10^3/uL (140-450); Red Cell Distribution Width 13.5 % (11.8-14.3); White Blood Cell 8.8 10^3/uL (4.4-10.8)
[2024-04-22] VITALS (10 sets, daily range): BP systolic 92–126; BP diastolic 57–75; PULSE 61–98; RESP 15–18; TEMP 97.6–98.3; O2SAT 93–98
[2024-04-22 00:15] LABS: Alanine Aminotransferase 33 U/L (7-40); Alkaline Phosphatase 86 U/L (46-116); Anion Gap 11 (5-15); Aspartate Aminotransferase 32 U/L (13-40); BUN/Creatinine Ratio 21.3 (10.0-20.0); Blood Alcohol < 3.0 mg/dL (<10); Blood Urea Nitrogen 16 mg/dL (9-23); Calcium 10.1 mg/dL (8.7-10.4); Carbon Dioxide 23 mmol/L (20-30); Chloride 106 mmol/L (98-107); Glucose 162 mg/dL (74-106); Potassium 2.7 mmol/L (3.5-5.1); Sodium 140 mmol/L (136-145)
[2024-04-22 00:16] LABS: Acetaminophen < 2.0 UG/ML (10.0-20.0); Bilirubin, Total 0.5 mg/dL (0.2-1.0); Salicylate < 3.0 mg/dL (2.8-20.0); Total Protein 7.8 g/dL (5.7-8.2)
[2024-04-22 00:24] LABS: Lactic Acid w/Reflex 3.8 mmol/L (0.4-2.0)
[2024-04-22 00:26] LABS: Lipase 55 U/L (12-53)
[2024-04-22] MEDS: LORazepam 2MG/ML-1ML VIAL IV ONE (00:27)
[2024-04-22] MEDS: SODIUM CHLORIDE 0.9% 1,000 ML IV ONE ×2 (00:27→04:34)
[2024-04-22] MEDS ORDERED: hydrALAZINE HCL 20 MG/ML VL IV PRN (03:00)
[2024-04-22] MEDS ORDERED: ACETAMINOPHEN 325 MG TAB PO PRN (03:00)
[2024-04-22] MEDS ORDERED: DOCUSATE SOD 100 MG CAP PO PRN (03:00)
[2024-04-22] MEDS: POTASSIUM CHL 20MEQ/100ML 100 ML IV SCH (04:10)
[2024-04-22] MEDS ORDERED: MORPHINE SULFATE INJ 2 MG/ml SYRG IV PRN (04:15)
[2024-04-22] MEDS: MIDODRINE HCL 10 MG TAB PO ONE (04:38)
[2024-04-22] MEDS: HYDROcodone-ACET 5/325MG TAB PO PRN (05:20)
[2024-04-22 05:52] LABS: Alanine Aminotransferase 35 U/L (7-40); Albumin 3.5 g/dL (3.2-4.8); Alkaline Phosphatase 63 U/L (46-116); Anion Gap 6 (5-15); Aspartate Aminotransferase 36 U/L (13-40); BUN/Creatinine Ratio 23.9 (10.0-20.0); Bilirubin, Total 0.4 mg/dL (0.2-1.0); Blood Urea Nitrogen 11 mg/dL (9-23); Calcium 7.9 mg/dL (8.7-10.4); Carbon Dioxide 22 mmol/L (20-30); Chloride 114 mmol/L (98-107); Glucose 100 mg/dL (74-106); Potassium 3.8 mmol/L (3.5-5.1); Sodium 142 mmol/L (136-145); Total Protein 5.5 g/dL (5.7-8.2)
[2024-04-22] MEDS: SODIUM CHLOR 0.9% PF (SALINE LOCK) 10ML VIAL/SYR IV SCH (06:00)
[2024-04-22 08:30] LABS: Urine Bacteria FEW /hpf (None Seen); Urine Blood Negative /uL (Negative); Urine Color Light-Yellow (Yellow); Urine Mucus FEW (None Seen); Urine Protein, UAD Negative (Negative); Urine Specific Gravity 1.023 (1.001-1.035); Urine Urobilinogen Normal (Negative); Urine WBC 1 /hpf (0 - 5); Urine pH 6.5 (5.0-9.0)
[2024-04-22 08:31] LABS: Urine Clarity Cloudy (Clear)
[2024-04-22 08:37] LABS: Amphetamine Screen, Urine Neg (NEGATIVE); Barbiturate Scree,Urine Neg (NEGATIVE); Benzodiazephine Screen, Urine Neg (NEGATIVE); Cocaine Screen, Urine Neg (NEGATIVE)
[2024-04-22 08:38] LABS: Cannabinoid Screen, Urine Neg (NEGATIVE); Opiate Scree,Urine Neg (NEGATIVE); Phencyclidine Screen, Urine Neg (NEGATIVE)
[2024-04-22] MEDS: ONDANSETRON HCL 4 MG/2 ML VIAL IV PRN (10:04)
[2024-04-22] MEDS: MULTIPLE VITAMIN TAB PO SCH (10:57)
[2024-04-22] MEDS ORDERED: LORazepam 2MG/ML-1ML VIAL IV PRN (15:45)
[2024-04-23] VITALS (16 sets, daily range): BP systolic 86–129; BP diastolic 52–81; PULSE 54–99; RESP 15–20; TEMP 97.8–98.8; O2SAT 93–100
[2024-04-23 05:35] LABS: Basophils # (auto) 0 10 ^3/uL (0-0.2); Basophils % (auto) 0.8 % (0.0-2.0); Eosinophils # (auto) 0.3 10 ^3/uL (0-0.8); Eosinophils % (auto) 7.9 % (0.0-7.0); Hematocrit 33.4 % (36.0-46.0); Hemoglobin 11.4 g/dL (12.2-16.2); Lymphocytes # (auto) 1.8 10 ^3/uL (0.4-5.4); Lymphocytes % (auto) 44.8 % (10.0-50.0); Mean Corpuscular Hemoglobin 30.7 pg (28.0-32.0); Mean Corpuscular Hgb Conc. 34.1 g/dL (32.0-36.0); Mean Corpuscular Volume 89.8 fL (80.0-100.0); Monocytes # (auto) 0.3 10 ^3/uL (0-1.3); Monocytes % (auto) 7.8 % (0.0-12.0); Neutrophils # (auto) 1.6 10 ^3/uL (1.6-8.6); Neutrophils % (auto) 38.7 % (37.0-80.0); Platelet Count (auto) 249 10^3/uL (140-450); Red Blood Cells 3.72 10^6/uL (4.0-5.20); Red Cell Distribution Width 13.5 % (11.8-14.3); White Blood Cell 4.1 10^3/uL (4.4-10.8)
[2024-04-23 05:54] LABS: Alanine Aminotransferase 442 U/L (7-40); Albumin 4.2 g/dL (3.2-4.8); Alkaline Phosphatase 111 U/L (46-116); Anion Gap 6 (5-15); Aspartate Aminotransferase 369 U/L (13-40); Calcium 9.4 mg/dL (8.7-10.4); Carbon Dioxide 24 mmol/L (20-30); Chloride 109 mmol/L (98-107); Glucose 97 mg/dL (74-106); Potassium 3.8 mmol/L (3.5-5.1); Sodium 139 mmol/L (136-145)
[2024-04-23 05:55] LABS: Bilirubin, Total 0.6 mg/dL (0.2-1.0); Total Protein 6.6 g/dL (5.7-8.2)
[2024-04-23 06:11] LABS: BUN/Creatinine Ratio 10.6 (10.0-20.0); Blood Urea Nitrogen < 5 mg/dL (9-23)
[2024-04-23] MEDS: cefTRIAXone 1GM/50ML D5W 50 ML IV SCH (09:27)
[2024-04-23] MEDS: ALBUTEROL SULF 2.5 MG/0.5ML(0.5%) NEB SOLN NEB PRN (10:50)
[2024-04-23] MEDS: SODIUM CHLORIDE 0.9% 1,000 ML IV ONE (14:00)
[2024-04-23 14:15] LABS: Hepatitis B Core Total AB Negative (Negative)
[2024-04-23 15:31] LABS: Hepatitis A Total Antibody Positive (Negative); Hepatitis B Surface Antibody Positive (Negative); Hepatitis B Surface Antigen Negative (Negative); Hepatitis C Antibody Negative (Negative)
[2024-04-23] MEDS: NITROGLYCERIN 0.4 MG SL TAB SL PRN (16:34)
[2024-04-23] MEDS: LORazepam 2MG/ML-1ML VIAL IV PRN (16:55)
[2024-04-23] MEDS: SERTRALINE HCL 50 MG TAB PO ONE (18:25)
[2024-04-24] VITALS (15 sets, daily range): BP systolic 80–114; BP diastolic 48–72; PULSE 51–97; RESP 14–22; TEMP 98.1–98.7; O2SAT 94–100
[2024-04-24 07:03] LABS: Basophils # (auto) 0 10 ^3/uL (0-0.2); Basophils % (auto) 0.5 % (0.0-2.0); Eosinophils # (auto) 0.3 10 ^3/uL (0-0.8); Eosinophils % (auto) 6.1 % (0.0-7.0); Hematocrit 34.8 % (36.0-46.0); Hemoglobin 11.9 g/dL (12.2-16.2); Lymphocytes # (auto) 1.9 10 ^3/uL (0.4-5.4); Lymphocytes % (auto) 35.1 % (10.0-50.0); Mean Corpuscular Hemoglobin 30.5 pg (28.0-32.0); Mean Corpuscular Hgb Conc. 34.3 g/dL (32.0-36.0); Monocytes # (auto) 0.4 10 ^3/uL (0-1.3); Monocytes % (auto) 7.2 % (0.0-12.0); Neutrophils # (auto) 2.7 10 ^3/uL (1.6-8.6); Neutrophils % (auto) 51.1 % (37.0-80.0); Nucleated Red Blood Cells % 0.1 %; Platelet Count (auto) 280 10^3/uL (140-450); Red Blood Cells 3.92 10^6/uL (4.0-5.20); Red Cell Distribution Width 13.4 % (11.8-14.3); White Blood Cell 5.3 10^3/uL (4.4-10.8)
[2024-04-24 07:38] LABS: Alanine Aminotransferase 333 U/L (7-40); Alkaline Phosphatase 109 U/L (46-116); Anion Gap 7 (5-15); BUN/Creatinine Ratio 9.8 (10.0-20.0); Blood Urea Nitrogen 6 mg/dL (9-23); Calcium 9.6 mg/dL (8.7-10.4); Carbon Dioxide 23 mmol/L (20-30); Chloride 109 mmol/L (98-107); Glucose 93 mg/dL (74-106); Potassium 4.5 mmol/L (3.5-5.1); Sodium 139 mmol/L (136-145)
[2024-04-24 07:40] LABS: Albumin 4.1 g/dL (3.2-4.8); Aspartate Aminotransferase 138 U/L (13-40); Bilirubin, Total 0.5 mg/dL (0.2-1.0); Total Protein 7.2 g/dL (5.7-8.2)
[2024-04-24 07:50] LABS: INR 1.11 (0.9-1.15); Partial Thromboplastin Time 25.6 SEC (24.5-34.5); Prothrombin Time 11.7 sec (9.3-11.8)
[2024-04-24] MEDS: SERTRALINE HCL 50 MG TAB PO SCH (09:24)
[2024-04-24] MEDS: SODIUM CHLORIDE 0.9% 1,000 ML IV ONE (10:28)
[2024-04-24] MEDS: fentaNYL CITRATE 100 MCG/2 ML VL IV ONE (13:00)
[2024-04-24] MEDS: LIDOCAINE VISCOUS 2% 15ML UD PO ONE (13:00)
[2024-04-24] MEDS: MIDAZOLAM HCL 2MG/2ML 2ml VIAL (1mg/ml) IV ONE (13:00)
[2024-04-24] MEDS ORDERED: SERT50TA PO (18:01)
== END 2024-04-24 20:00 | disposition home or self-care (01) | DRG 425 ==
LOC: ER 23:02 → EDBD 23:02 → TELE 04-22 04:03 → TELE-CENTR 04-22 17:30
PROVIDERS: ADMIT Internal Medicine Pulmonary Disease; ATTEND Internal Medicine Pulmonary Disease
PROC: B24BZZ4 Ultrasonography of Heart with Aorta, Transesophageal (ICD-10-PCS; principal; 2024-04-24)
DX: E87.6 Hypokalemia (principal); G93.41 Metabolic encephalopathy; E87.20 Acidosis, unspecified; E83.51 Hypocalcemia; I95.9 Hypotension, unspecified; N39.0 Urinary tract infection, site not specified; E87.8 Other disorders of electrolyte and fluid balance, not elsewhere classified; J45.909 Unspecified asthma, uncomplicated; R73.9 Hyperglycemia, unspecified; F17.200 Nicotine dependence, unspecified, uncomplicated; F41.9 Anxiety disorder, unspecified; F39 Unspecified mood [affective] disorder; Z88.5 Allergy status to narcotic agent; Z82.49 Family history of ischemic heart disease and other diseases of the circulatory system; Z56.0 Unemployment, unspecified
CPT/HCPCS: 36415; 70450; 70551; 76700; 80053; 80307; 80320; 80329; 81001; 81025; 83036; 83605; 83690; 83880; 84484; 84702; 85025; 85610; 85730; 86704; 86706; 86708; 86803; 86850; 86900; 86901; 87040; 87086; 87340; 93005; 93306; 93312; 93886; 94640; 95819; 99152; G0378; J2250; J2405; J3480

== ENCOUNTER 2024-04-26 13:30 | Emergency (ER) | payer MEDICAID ==
[~2024-04-26] VITALS: Ht 147.3 cm; Wt 41.1 kg
[~2024-04-26 13:30] MED LIST changes: -PREN-96 PO; +SERT50TA PO
[2024-04-26 13:50] VITALS: BP 94/68; PULSE 66; RESP 16; O2SAT 96
== END 2024-04-26 16:47 | disposition left against medical advice (07) ==
LOC: ER 13:30
DX: R53.1 Weakness (principal); R42 Dizziness and giddiness; Z53.21 Procedure and treatment not carried out due to patient leaving prior to being seen by health care provider
CPT/HCPCS: 82962

== ENCOUNTER 2025-08-31 23:31 | Inpatient (IN) | payer MEDICAID ==
[~2025-08-31] VITALS: Ht 154.9 cm; Wt 44.9 kg
[2025-09-01 00:01] VITALS: PULSE 73; RESP 9; O2SAT 97
--- NOTE | 2025-09-01 00:02 | ED.PDOC ---
History of Present Illness HPI Comments 29 y/o F is BIBA from private residence for syncope. Significant history for anxiety, asthma, conversion hysteria reaction, and vertigo. Patient reports on grabbing her clothes from her bathroom shower when she, suddenly, began experiencing room-spinning dizziness and passed out. She states waking up on the floor, with her children witnessing patient passing out for a few minutes, with reports of generalized "shaking." Patient comments on still having dizziness with additional development of substernal chest pain. Denies any shortness of breath, headache, or further acute symptoms. She reports on being passing out multiple times in the past for still unknown reasons. Patient also reports on being sick with congestion, nausea, vomiting, and fever for the past 2x weeks. 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, Medications, Allergies Allergies: Coded Allergies: Morphine (Verified Allergy, Unknown, 04/22/24) Home Meds Active Scripts Sertraline Hcl (Zoloft) 50 Mg Tab, 25 MG PO DAILY for 30 Days, #15 TAB 2 Refills Prov:OMID HUITRON RESIDENT 04/24/24 Albuterol Sulfate (VENTOLIN MDI) 90 Mcg Ih, 90 MCG IN QID PRN, #1 INH 0 Refills Prov:EDMUNDO FLYNN 08/28/21 Reported Medications Multiple Vitamin (Multivitamins) Tab, 1 TAB PO DAILY for Vitamin, #90 TAB 3 Refills 05/18/20 Information Source: Patient, Emergency Med Personnel Mode of Arrival: EMS Severity: Moderate Timing: Hours Duration: Minutes Prehospital treatment: 12 Lead EKG, Accucheck, Physical Education Aide Past Medical History PAST MEDICAL HISTORY: Anxiety, Asthma Past Medical History (Other): Vertigo Conversion hysteria reaction Surgical History: 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 SORTER 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: No Pertinent SHANK SORTER History Family History Family History: Family hx of HTN Social History Smoker: Non-Smoker Alcohol: Denies ETOH Use Drugs: Denies Drug Use Lives In: Home All Other Systems: Reviewed and Negative (Comprehensive systems review obtained and negative except for what is stated in the HPI.) Physical Exam General Appearance: No Apparent Distress, Normal HEENT: Normal ENT Inspection, Pharynx Normal, TMs Normal, Other (no nystagmus but dizziness reproducible with eye-tracking test ) Neck: Full Range of Motion, Non-Tender, Normal, Normal Inspection Respiratory: Chest Non-Tender, Lungs Clear, No Accessory Muscle Use, No Respiratory Distress, Normal Breath Sounds Cardiovascular: No Edema, No JVD, No Murmur, No Gallop, Normal Peripheral Pulses, Regular Rate/Rhythm Breast Exam: Deferred Gastrointestinal: No Organomegaly, Non Tender, No Pulsatile Mass, Normal Bowel Sounds, Soft Genitalia: Deferred Pelvic: Deferred Rectal: Deferred Extremities: No calf tenderness, Normal capillary refill, Normal inspection, Normal range of motion, Non-tender, No pedal edema Musculoskeletal : Apperance: Normal Neurologic: Alert, swedger II-XII nml as Tested, No Motor Deficits, Normal Affect, Normal Mood, No Sensory Deficits Cerebellar Function: Normal Reflexes: Normal Skin: Dry, Normal Color, Warm Lymphatic: No Adenopathy Was a procedure done? Was a procedure done?: No Differential Dx Considerations may include: vasovagal response, dehydration, vertigo, electrolyte imbalance, CVA/TIA, seizures, closed head injury, hypoxia, hypotension, among others X-Ray, Labs, Meds, VS Vital Signs Date Time Temp Pulse Resp B/P (MAP) Pulse Ox O2 Delivery O2 Flow Rate FiO2 09/01/25 00:01 98.6 73 9 111/66 (81) 97 98.6 09/01/25 00:01 73 9 97 Room Air* 0 21 08/31/25 23:48 98.6 81 18 109/71 98 98.6 Lab Test 08/31/25 23:59 08/31/25 23:52 Range/Units Sodium Level 140 136-145 mmol/L Potassium Level 3.8 3.5-5.1 mmol/L Chloride Level 104 98-107 mmol/L Carbon Dioxide Level 26 20-31 mmol/L Anion Gap 10 5-15 Blood Urea Nitrogen 11 9-23 mg/dL Creatinine 0.56 0.550-1.02 mg/dL Glomerular Filtration Rate Calc 125 >90 mL/min BUN/Creatinine Ratio 19.6 10.0-20.0 Serum Glucose 104 74-106 mg/dL Calcium Level 9.9 8.7-10.4 mg/dL Troponin I High Sensitivity 5 </=34 ng/L White Blood Count 7.2 4.4-10.8 10^3/uL Red Blood Count 3.94 L 4.0-5.20 10^6/uL Hemoglobin 11.7 L 12.2-16.2 g/dL Hematocrit 34.2 L 36.0-46.0 % Mean Corpuscular Volume 86.9 80.0-100.0 fL Mean Corpuscular Hemoglobin 29.6 28.0-32.0 pg Mean Corpuscular Hemoglobin Concent 34.1 32.0-36.0 g/dL Red Cell Distribution Width 14.4 H 11.8-14.3 % Platelet Count 316 140-450 10^3/uL Mean Platelet Volume 7.4 6.9-10.8 fL Neutrophils (%) (Auto) 56.6 37.0-80.0 % Lymphocytes (%) (Auto) 26.9 10.0-50.0 % Monocytes (%) (Auto) 9.3 0.0-12.0 % Eosinophils (%) (Auto) 6.9 0.0-7.0 % Basophils (%) (Auto) 0.3 0.0-2.0 % Neutrophils # (Auto) 4.1 1.6-8.6 10 ^3/uL Lymphocytes # (Auto) 1.9 0.4-5.4 10 ^3/uL Monocytes # (Auto) 0.7 0-1.3 10 ^3/uL Eosinophils # (Auto) 0.5 0-0.8 10 ^3/uL Basophils # (Auto) 0 0-0.2 10 ^3/uL Nucleated Red Blood Cells 0.0 % Current Medications Medications (Trade) Dose Ordered Sig/Jazmyn Route Start Time Stop Time Status Last Admin Meclizine HCl (Antivert Tablet) 25 mg ONCE ONCE PO 09/01/25 00:00 09/01/25 00:01 MO 09/01/25 00:18 Ondansetron HCl (Zofran Po) 4 mg ONCE ONCE PO 09/01/25 00:00 09/01/25 00:01 MO 09/01/25 00:09 Alprazolam (Xanax Tablet) 0.25 mg ONCE ONCE PO 09/01/25 00:00 09/01/25 00:01 MO 09/01/25 00:19 Aspirin 325 mg ONCE ONCE PO 09/01/25 00:00 09/01/25 00:01 MO 09/01/25 00:19 Time of 1ST Reevaluation: 00:15 Reevaluation 1ST: Unchanged Patient Education/Counseling: Diagnosis, Treatment, Prognosis, Need For Follow Up Family Education/Counseling: No Family Present Comments This is a patient who presents with syncope and vertigo symptoms. Patient does not have any neurologic deficits. Can 2nd pace she reportedly had convulsion during the syncopal episode. Seizure can not be ruled out. However this is unlikely given the lack of neurologic findings. She likely was hypotensive. She did not have any pulse seizure ecto states. Patient will be admitted for further evaluation of the cause of the syncope. Additional Information Previous history reviewed: April 22, 2024, April 26, 2024, & February 05, 2025 encounters for AMS, generalized weakness, and anxiety The following tests were ordered, and results were reviewed by me: troponin, EKG, BMP, CBC Additional Information was gathered from interviewing the following independent historians:EMS personnel I reviewed and agreed with the following test results read by other providers: N/A I discussed treatment and results with medical personnel and: patient SEPSIS Sepsis Screen Physician Orders Electrocardigram (08/31/25 23:52) Continuous Ekg Monitoring 08,12,16,20,00,04 (08/31/25 23:52) Electrocardigram (09/01/25 00:52) Electrocardigram (09/01/25 02:52) Troponin-I Hs (09/01/25 00:52) Troponin-I Hs (09/01/25 02:52) Chest Xray 1 View (09/01/25 01:02) Vital Signs Date Time Temp Pulse Resp B/P (MAP) Pulse Ox O2 Delivery O2 Flow Rate FiO2 09/01/25 00:01 98.6 73 9 111/66 (81) 97 98.6 09/01/25 00:01 73 9 97 Room Air* 0 21 08/31/25 23:48 98.6 81 18 109/71 98 98.6 Laboratory Tests Test 08/31/25 23:52 White Blood Count 7.2 10^3/uL (4.4-10.8) Medications Medications Dose Ordered Sig/Jazmyn Route Start Time Stop Time Status Last Admin Dose Admin Alprazolam 0.25 mg ONCE ONCE PO 09/01/25 00:00 09/01/25 00:01 DC 09/01/25 00:19 Aspirin 325 mg ONCE ONCE PO 09/01/25 00:00 09/01/25 00:01 DC 09/01/25 00:19 Meclizine HCl 25 mg ONCE ONCE PO 09/01/25 00:00 09/01/25 00:01 DC 09/01/25 00:18 Ondansetron HCl 4 mg ONCE ONCE PO 09/01/25 00:00 09/01/25 00:01 DC 09/01/25 00:09 Departure 1 Departure Time of Disposition: 01:05 Impression: Primary Impression: Syncopal episodes Disposition: ADMITTED INPATIENT Admit to: [facility] Condition: Serious Discharged With: Self Critical Care Note Critical Care Time?: No Stability Stability form required: No Heart Score Heart Score: Heart Score Response (Comments) Value History N/A 0 EKG N/A 0 Age N/A 0 Risk Factors N/A 0 Troponin N/A 0 Total 0 I personally scribed for SHAHANA YU MD ([email or web address]) on 09/01/25 at 00:02. Electronically submitted by Long Morton [email or web address]). SHAHANA YU MD Sep 01, 2025 00:02
[2025-09-01] MEDS: ONDANSETRON ODT 4 MG TAB PO ONE (00:09)
[2025-09-01] MEDS: MECLIZINE HCL 25 MG TAB PO ONE (00:18)
[2025-09-01] MEDS: ALPRAZolam 0.25 MG TAB PO ONE (00:19)
[2025-09-01 00:21] LABS: Hematocrit 34.2 % (36.0-46.0); Hemoglobin 11.7 g/dL (12.2-16.2); Mean Corpuscular Hemoglobin 29.6 pg (28.0-32.0); Mean Corpuscular Volume 86.9 fL (80.0-100.0); Nucleated Red Blood Cells % 0.0 %
[2025-09-01 00:24] LABS: Chloride 104 mmol/L (98-107); Potassium 3.8 mmol/L (3.5-5.1); Sodium 140 mmol/L (136-145)
[2025-09-01 00:25] LABS: Anion Gap 10 (5-15); Carbon Dioxide 26 mmol/L (20-31)
[2025-09-01 00:26] LABS: Calcium 9.9 mg/dL (8.7-10.4)
[2025-09-01 00:31] LABS: BUN/Creatinine Ratio 19.6 (10.0-20.0); Blood Urea Nitrogen 11 mg/dL (9-23); Glucose 104 mg/dL (74-106)
--- NOTE | 2025-09-01 01:30 | DVH ---
CHEST RADIOGRAPH INDICATION: syncope TECHNIQUE: Single frontal view of the chest was obtained COMPARISON: XY CHEST PORTABLE on DOS: 02/05/25, CHEST PORTABLE on DOS: 05/06/22, CXRP on DOS: 05/06/22, CHEST PORTABLE on DOS: 03/13/21 FINDINGS: Lungs and pleural spaces are clear. Cardiac silhouette and han are within normal limits. Bones and soft tissues demonstrate no significant abnormality. IMPRESSION: No acute disease.
[2025-09-01] MEDS: ONDANSETRON HCL 4 MG/2 ML VIAL IV ONE (01:51)
[2025-09-01] MEDS: SODIUM CHLORIDE 0.9% 1,000 ML IV ONE ×2 (04:18→06:26)
[2025-09-01] MEDS: NOREPINEPHRINE 8 MG/250ML KIT 250 ML IV SCH (06:43)
[2025-09-01 07:16] VITALS: PULSE 52; RESP 16; O2SAT 98
[2025-09-01] MEDS ORDERED: ALPRAZolam 0.25 MG TAB PO PRN (09:15)
[2025-09-01] MEDS ORDERED: DOCUSATE SOD 100 MG CAP PO PRN (09:15)
[2025-09-01] MEDS: SERTRALINE HCL 50 MG TAB PO SCH (09:57)
--- NOTE | 2025-09-01 10:30 | ECG ---
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
--- NOTE | 2025-09-01 11:34 | DVHHP2 ---
History of Present Illness Reason for Visit: Syncopal episodes History of Present Illness The patient is a 29-year-old female with past history of asthma, anxiety, conversion hysteria reaction, and vertigo who presented to [facility] ED for evaluation of syncopal episode. Patient reports that, she was in the shower when she tried to grab her clothes from the bathroom and suddenly began to experience dizziness, spinning room, and passed out. Patient reports that she woke up on the floor, her children witnesses patient passing out for few minutes associated with generalized shaking, substernal chest pain, and weakness. Patient was seen and evaluated in the ED, laboratory data shows WBC 7.2, hemoglobin 11.7, hematocrit 34.2, platelets 316, sodium 140, potassium 3.6, BUN 11, creatinine 0.56, GFR 125, glucose 104, calcium 9.9, troponin 5, blood pressure 76/50 trending up to 103/67, heart rate 55, temperature 98.3 F, O2 saturation 98% on room air. Chest x-ray show no acute disease. On my assessment, patient denied chest pain, no headache, dizziness, diaphoresis, shortness of breaths, no diarrhea, nausea, vomiting, fever, no chills. Patient was admitted for further evaluation and medical management. Past Medical History Anxiety, Asthma, Vertigo, Conversion hysteria reaction Past Surgical History Family History Reviewed, noncontributory to the management of this case. Past Social History The patient lives at home, denies smoking, alcohol or illicit drugs abuse. Review of Systems Constitutional: Yes: Weakness; No: Fever, Chills, Sweats, Malaise, Other Eyes: No: Pain, Vision change, Conjunctivae inflammation, Eyelid inflammation, Other, Redness ENT: No: Ear pain, Ear discharge, Nose pain, Nose discharge, Nose congestion, Mouth pain, Mouth swelling, Throat pain, Throat swelling, Other Respiratory: No: Cough, Dry, Shortness of breath, SOB with excertion, Wheezing, Hemoptysis, Pleuritic Pain, Sputum, Wheezing, Other Cardiovascular: No: Chest Pain, Palpitations, Orthopnea, Paroxysmal Noc. Dyspnea, Edema, Lt Headedness, Other Gastrointestinal: No: Nausea, Vomiting, Abdominal Pain, Diarrhea, Constipation, Melena, Hematochezia, Other Genitourinary: No Dysuria, No Frequency, No Incontinence, No Hematuria, No Retention, No Other Musculoskeletal: No: other, neck pain, shoulder pain, arm pain, back pain, hand pain, leg pain, foot pain Skin: No: Rash, Lesions, Jaundice, Bruising, Other Neurological: Other (Syncope); No: Weakness, Numbness, Incoordination, Change in speech, Confusion, Seizures Allergies: Coded Allergies: Morphine (Verified Allergy, Unknown, 04/22/24) Medications Current Medications Medications Dose Ordered Sig/Jazmyn Route Start Time Stop Time Status Last Admin Dose Admin Norepinephrine Bitartrate 250 ml @ 3.75 mls/hr Q24H IV 09/01/25 05:45 09/01/25 06:43 3.75 MLS/HR Sertraline HCl 50 mg DAILY PO 09/01/25 10:00 09/01/25 09:57 50 MG Alprazolam 0.25 mg Q8HP PRN PO 09/01/25 09:15 Meclizine HCl 25 mg Q8HPRN PRN PO 09/01/25 09:15 Sodium Chloride 10 ml Q8HR IV 09/01/25 14:00 Acetaminophen/ Hydrocodone Bitart 1 tab Q4HP PRN PO 09/01/25 09:15 Hold Ondansetron HCl 4 mg Q4HP PRN IV 09/01/25 09:15 Docusate Sodium 100 mg BIDPRN PRN PO 09/01/25 09:15 Acetaminophen 650 mg Q6HP PRN PO 09/01/25 09:15 Exam Vital Signs Vital Signs Date Time Temp Pulse Resp B/P (MAP) Pulse Ox O2 Delivery O2 Flow Rate FiO2 09/01/25 11:30 113/75 09/01/25 10:30 80 15 97 09/01/25 10:00 98.3 98.3 09/01/25 07:16 Room Air* 0 21 General Appearance: Alert, Oriented X3, Cooperative, No acute distress HEENT: Atraumatic, PERRLA, EOMI, Mucous membr. moist/pink Respiratory: Normal air movement Cardiovascular: Regular rate, Normal S1, Normal S2, No murmurs Abdominal: Normal bowel sounds, Soft, No tenderness, No hepatospenomegaly, No masses Extremities: No clubbing, No cyanosis, No edema, Normal pulses, No tenderness/swelling Skin: No rashes, No significant lesion Neuro: Normal speech, Normal tone, Sensation intact, Cranial nerves 3-12 NL, Reflexes 2+, Other (Generalized weakness) Psych/Mental Status: Mental status NL, Mood NL Labs/Xrays Labs Test 09/01/25 01:02 08/31/25 23:59 08/31/25 23:52 Range/Units Troponin I High Sensitivity 5 </=34 ng/L Sodium Level 140 136-145 mmol/L Potassium Level 3.8 3.5-5.1 mmol/L Chloride Level 104 98-107 mmol/L Carbon Dioxide Level 26 20-31 mmol/L Anion Gap 10 5-15 Blood Urea Nitrogen 11 9-23 mg/dL Creatinine 0.56 0.550-1.02 mg/dL Glomerular Filtration Rate Calc 125 >90 mL/min BUN/Creatinine Ratio 19.6 10.0-20.0 Serum Glucose 104 74-106 mg/dL Calcium Level 9.9 8.7-10.4 mg/dL White Blood Count 7.2 4.4-10.8 10^3/uL Red Blood Count 3.94 L 4.0-5.20 10^6/uL Hemoglobin 11.7 L 12.2-16.2 g/dL Hematocrit 34.2 L 36.0-46.0 % Mean Corpuscular Volume 86.9 80.0-100.0 fL Mean Corpuscular Hemoglobin 29.6 28.0-32.0 pg Mean Corpuscular Hemoglobin Concent 34.1 32.0-36.0 g/dL Red Cell Distribution Width 14.4 H 11.8-14.3 % Platelet Count 316 140-450 10^3/uL Mean Platelet Volume 7.4 6.9-10.8 fL Neutrophils (%) (Auto) 56.6 37.0-80.0 % Lymphocytes (%) (Auto) 26.9 10.0-50.0 % Monocytes (%) (Auto) 9.3 0.0-12.0 % Eosinophils (%) (Auto) 6.9 0.0-7.0 % Basophils (%) (Auto) 0.3 0.0-2.0 % Neutrophils # (Auto) 4.1 1.6-8.6 10 ^3/uL Lymphocytes # (Auto) 1.9 0.4-5.4 10 ^3/uL Monocytes # (Auto) 0.7 0-1.3 10 ^3/uL Eosinophils # (Auto) 0.5 0-0.8 10 ^3/uL Basophils # (Auto) 0 0-0.2 10 ^3/uL Nucleated Red Blood Cells 0.0 % PATIENT: RELL LEBLANCCCT: [id number] UNIT: [id number] : 1995 LOC: ER ROOM / BED: / AGE / SEX: 29 / F ADM STATUS: REG ER SERVICE 010 ORDERING PHYSICIAN: SHAHANA YU MD PROCEDURE(s): CXR1 - CHEST XRAY 1 VIEW REASON: syncope ORDER NUMBER(s): [id number], ACCESSION NUMBER(s): [id number] CHEST RADIOGRAPH INDICATION: syncope TECHNIQUE: Single frontal view of the chest was obtained COMPARISON: XY CHEST PORTABLE on DOS: 02/05/25, CHEST PORTABLE on DOS: 05/06/22, CXRP on DOS: 05/06/22, CHEST PORTABLE on DOS: 03/13/21 FINDINGS: Lungs and pleural spaces are clear. Cardiac silhouette and han are within normal limits. Bones and soft tissues demonstrate no significant abnormality. IMPRESSION: No acute disease. SEPSIS Sepsis Screen Date sepsis recognized/suspect: Sep 01, 2025 Time Sepsis recognized/suspect: 715 Recent Procedure: No On Antibiotic Therapy: No Respiratory Rate >20: Yes Heart Rate >90: No Temp<36 C (96.8 F) or >38.3 C: No SBP <90 or MAP <65 mmHG: No New Acute Mental Status Change: No Is the patient on CPAP, BIPAP,: No Physician Orders Norepinephrine 8 Mg/250ml Kit (Levophed) (09/01/25 05:45) Sertraline Hcl (Zoloft) (09/01/25 10:00) Alprazolam Tablet (Xanax Tablet) (09/01/25 09:15) Meclizine Tablet (Antivert Tablet) (09/01/25 09:15) Allergies (09/01/25 09:15) Code Status (09/01/25 09:15) Sodium Chloride Lock (Saline Lock Ns) (09/01/25 14:00) Oxygen Per Hour (09/01/25 09:15) Hydrocodone-Acet 5/325mg Tab ([place] 5/32 (09/01/25 09:15) Ondansetron Hcl (Zofran) (09/01/25 09:15) Docusate Sodium Capsule (Colace Capsule) (09/01/25 09:15) Complete Blood Count (09/02/25 04:00) Comprehensive Metabolic Panel (09/02/25 04:00) Cardiac Diet-2gna,Lofat,Lochol (09/01/25 Breakfast) Condition: Serious (09/01/25 09:15) Acetaminophen Tablet (Tylenol Tablet) (09/01/25 09:15) Bedrest With Bathroom Privileg (09/01/25 09:15) Sequential Compression Device (09/01/25 ) Admit (09/01/25 11:33) Nitroglycerin Sublingual (Ntrostat Subli (09/01/25 11:45) Morphine Sulfate Injection (09/01/25 11:45) Stat Ekg For Chest Pain (09/01/25 11:33) Notify Md Of Changes From Base (09/01/25 11:33) Financial Investment Manager For 24 Hours (09/01/25 11:33) Emergency Dysrhythmia Protocol (09/01/25 11:33) Rhythm Strips Once Every Shift (09/01/25 11:33) Oxygen By Nasal Cannula (09/01/25 11:33) Vital Signs Date Time Temp Pulse Resp B/P (MAP) Pulse Ox O2 Delivery O2 Flow Rate FiO2 09/01/25 11:30 113/75 09/01/25 10:30 80 15 103/68 (80) 97 09/01/25 10:15 63 20 101/62 (75) 97 09/01/25 10:02 77 20 96/62 (73) 97 09/01/25 10:00 98.3 59 22 96/62 (73) 97 98.3 09/01/25 09:45 121/76 09/01/25 09:45 98.3 64 15 121/76 (91) 99 98.3 09/01/25 09:30 98.3 53 24 111/75 (87) 99 98.3 09/01/25 09:15 98.3 57 13 102/72 (82) 97 98.3 09/01/25 09:00 98.3 52 22 115/71 (86) 98 98.3 09/01/25 08:49 98.3 54 16 103/67 (79) 98 98.3 09/01/25 08:32 98.3 55 16 99/66 (77) 98 98.3 09/01/25 08:16 98.3 71 16 86/48 (61) 98 98.3 09/01/25 08:00 98.3 54 16 107/69 (82) 98 98.3 09/01/25 08:00 54 09/01/25 07:45 98.3 53 16 115/71 (86) 98 98.3 09/01/25 07:30 98.3 58 16 109/72 (84) 98 98.3 09/01/25 07:16 98.3 52 16 108/66 (80) 97 98.3 09/01/25 07:16 52 16 98 Room Air* 0 21 09/01/25 07:15 48 22 108/66 (80) 09/01/25 07:00 46 20 99/66 (77) 09/01/25 06:55 97/59 09/01/25 06:55 47 23 97/59 (72) 09/01/25 06:50 59 20 72/42 (52) 09/01/25 06:50 72/42 09/01/25 06:45 61 19 89/57 (68) 09/01/25 06:45 89/57 09/01/25 06:43 84/52 09/01/25 06:30 71 18 84/52 (63) 09/01/25 06:15 76 19 87/54 (65) 09/01/25 06:00 75 18 84/56 (65) 09/01/25 05:45 58 17 96/63 (74) 09/01/25 05:30 65 18 85/44 (58) 09/01/25 05:15 68 19 84/47 (59) 09/01/25 05:00 56 17 88/53 (65) 09/01/25 04:45 63 17 85/54 (64) 09/01/25 04:30 67 15 86/53 (64) 09/01/25 04:15 82 18 85/53 (64) 09/01/25 04:09 65 18 76/50 (59) 09/01/25 04:06 61 Laboratory Tests Test 08/31/25 23:52 White Blood Count 7.2 10^3/uL (4.4-10.8) Medications Medications Dose Ordered Sig/Jazmyn Route Start Time Stop Time Status Last Admin Dose Admin Alprazolam 0.25 mg ONCE ONCE PO 09/01/25 00:00 09/01/25 00:01 [place] 09/01/25 00:19 0.25 MG Aspirin 325 mg ONCE ONCE PO 09/01/25 00:00 09/01/25 00:01 [place] 09/01/25 00:19 325 MG Meclizine HCl 25 mg ONCE ONCE PO 09/01/25 00:00 09/01/25 00:01 [place] 09/01/25 00:18 25 MG Norepinephrine Bitartrate 250 ml @ 3.75 mls/hr Q24H IV 09/01/25 05:45 09/01/25 06:43 3.75 MLS/HR Ondansetron HCl 4 mg ONCE ONCE IV 09/01/25 01:30 09/01/25 01:31 [place] 09/01/25 01:51 4 MG Ondansetron HCl 4 mg ONCE ONCE PO 09/01/25 00:00 09/01/25 00:01 [place] 09/01/25 00:09 4 MG Sertraline HCl 50 mg DAILY PO 09/01/25 10:00 09/01/25 09:57 50 MG Sodium Chloride 1,000 ml @ 1,000 mls/hr Q1H ONCE IV 09/01/25 04:15 09/01/25 05:14 [place] 09/01/25 04:18 1,000 MLS/HR Sodium Chloride 1,000 ml @ 1,000 mls/hr Q1H ONCE IV 09/01/25 06:30 09/01/25 07:29 [place] 09/01/25 06:26 1,000 MLS/HR Assessment/Plan Assessment/Plan Syncopal episodes Hypotension, unspecified Generalized weakness Plan 1. Admit to telemetry unit 2. Breathing treatment 3. Pain control management 4. Management of fluids and electrolytes 5. Consultation for Cardiology 6. Diagnostic tests chest x-ray 7. DVT prophylaxis-on SCDs 8. Repeat labs CBC, CMP in a.m. 9. Continue with current medical management 10. Treatment plan discussed with patient and RN. Patient verbalized un derstanding. Plan discussed with: Patient, Other (RN) My Orders Orders - JOSE VELOZ DNP Procedure Category Date Status Time Sertraline Hcl PHA 09/01/25 In Process (Zoloft) 10:00 Alprazolam Tablet PHA 09/01/25 In Process (Xanax Tablet) 09:15 Meclizine Tablet PHA 09/01/25 In Process (Antivert Tablet) 09:15 Allergies CRISTOPHER 09/01/25 In Process 09:15 Code Status CODE 09/01/25 Transmitted 09:15 Sodium Chloride Lock PHA 09/01/25 In Process (Saline Lock Ns) 14:00 Oxygen Per Hour RT 09/01/25 Transmitted 09:15 Hydrocodone-Acet PHA 09/01/25 In Process 5/325mg Tab ([place] 09:15 Ondansetron Hcl PHA 09/01/25 In Process (Zofran) 09:15 Docusate Sodium PHA 09/01/25 In Process Capsule (Colace 09:15 Complete Blood Count LAB 09/02/25 Verified 04:00 Comprehensive LAB 09/02/25 Verified Metabolic Panel 04:00 Cardiac DIET 09/01/25 Transmitted Diet-2gna,Lofat,Lochol Breakfast Condition: Serious CRISTOPHER 09/01/25 In Process 09:15 Acetaminophen Tablet PHA 09/01/25 In Process (Tylenol Tablet) 09:15 Bedrest With Bathroom CRISTOPHER 09/01/25 In Process Privileg 09:15 Sequential CRISTOPHER 09/01/25 In Process Compression Device Admit ADMIT 09/01/25 Verified 11:33 Nitroglycerin PHA 09/01/25 Verified Sublingual (Ntrostat 11:45 Morphine Sulfate PHA 09/01/25 Verified Injection 11:45 Stat Ekg For Chest [facility] 09/01/25 Verified Pain 11:33 Notify Md Of Changes [facility] 09/01/25 Verified From Base 11:33 Financial Investment Manager For [facility] 09/01/25 Verified 24 Hours 11:33 Emergency Dysrhythmia [facility] 09/01/25 Verified Protocol 11:33 Rhythm Strips Once [facility] 09/01/25 Verified Every Shift 11:33 Oxygen By Nasal RT 09/01/25 Verified Cannula 11:33 Problem List: (1) Syncopal episodes (2) Hypotension, unspecified (3) Generalized weakness Date of Service: Sep 01, 2025 Billing Provider: JOSE VELOZ DNP Common Visit Codes: [id number] INP/OBS CARE (HIGH) JOSE VELOZ DNP Sep 01, 2025 11:34
[2025-09-01] MEDS ORDERED: NITROGLYCERIN 0.4 MG SL TAB SL PRN (11:45)
[2025-09-01] MEDS ORDERED: MORPHINE SULFATE INJ 2 MG/ml SYRG IV PRN (11:45)
[2025-09-01] MEDS: ONDANSETRON HCL 4 MG/2 ML VIAL IV PRN (12:04)
[2025-09-01] MEDS: LACTATED RINGER'S 1,000 ML IV ONE (12:14)
[2025-09-01] MEDS: ACETAMINOPHEN 325 MG TAB PO PRN (12:21)
[2025-09-01] MEDS: SODIUM CHLOR 0.9% PF (SALINE LOCK) 10ML VIAL/SYR IV SCH (13:57)
--- NOTE | 2025-09-01 15:17 | ECG ---
[facility] Test Date: 2025-09-01 Test Time: 15:16:15 Pat Name: DINO LEBLANC Department: [facility] ED Patient ID: [facility]-[id number] Room: [address] [place] [address] Gender: F Mba Intern: LADONNA : 1995 Requested By: SHAHANA YU Order Number: [id number] Reading MD: Hitesh Redding Measurements Intervals [place] Rate: 57 P: 71 NC: 141 QRS: 73 QRSD: 72 T: 63 QT: 451 QTc: 440 Interpretive Statements Sinus rhythm Electronically Signed On 09-02-2025 15:28:37 PST by Hitesh Redding Please click the below link to view image of tracing.
[2025-09-01] MEDS: HYDROcodone-ACET 5/325MG TAB PO PRN (16:20)
[2025-09-01 17:31] LABS: Urine Protein, UAD Negative (Negative)
[2025-09-01 17:46] LABS: Benzodiazephine Screen, Urine Neg (NEGATIVE)
[2025-09-01 17:47] LABS: Amphetamine Screen, Urine Neg (NEGATIVE); Barbiturate Scree,Urine Neg (NEGATIVE); Cannabinoid Screen, Urine Neg (NEGATIVE); Cocaine Screen, Urine Neg (NEGATIVE); Opiate Scree,Urine Neg (NEGATIVE); Phencyclidine Screen, Urine Neg (NEGATIVE)
[2025-09-01] MEDS: MIDODRINE HCL 10 MG TAB PO SCH (18:05)
[2025-09-01 19:37] VITALS: PULSE 59; RESP 14; O2SAT 96
[2025-09-01] MEDS: MECLIZINE HCL 25 MG TAB PO PRN (21:51)
[2025-09-02] VITALS (11 sets, daily range): BP systolic 92–104; BP diastolic 50–71; PULSE 57–80; RESP 12–18; TEMP 97.9–98.4; O2SAT 96–98
[2025-09-02 04:16] LABS: Hematocrit 33.6 % (36.0-46.0); Hemoglobin 11.2 g/dL (12.2-16.2); Mean Corpuscular Hemoglobin 29.0 pg (28.0-32.0); Mean Corpuscular Volume 86.7 fL (80.0-100.0); Nucleated Red Blood Cells % 0.1 %
[2025-09-02 04:47] LABS: Alanine Aminotransferase 224 U/L (7-40); Albumin 3.9 g/dL (3.2-4.8); Alkaline Phosphatase 130 U/L (46-116); Anion Gap 9 (5-15); BUN/Creatinine Ratio 10.4 (10.0-20.0); Bilirubin, Total 0.5 mg/dL (0.2-1.0); Blood Urea Nitrogen < 5 mg/dL (9-23); Calcium 9.0 mg/dL (8.7-10.4); Carbon Dioxide 23 mmol/L (20-31); Chloride 106 mmol/L (98-107); Glucose 94 mg/dL (74-106); Potassium 4.0 mmol/L (3.5-5.1); Sodium 138 mmol/L (136-145); Total Protein 6.8 g/dL (5.7-8.2)
[2025-09-02] MEDS: KETOROLAC TROMETH 30 MG/ML 1ML VIAL IV ONE (09:21)
[2025-09-02 09:35] LABS: Beta HCG, Quantitative 1.1 mIU/mL (1.5-4.2)
[2025-09-02 09:37] LABS: Thyroid Stimulating Hormone 0.38 uIU/mL (0.55-4.78)
--- NOTE | 2025-09-02 09:51 | DVH ---
INDICATION: transamnitis TECHNIQUE: Multiple real-time sonographic images were obtained of the right upper quadrant. COMPARISON: US ABDOMEN COMPLETE SONOGRAM on DOS: 04/23/24 FINDINGS: The liver demonstrates heterogeneous echotexture without focal mass lesions. There is no intrahepatic or extrahepatic ductal dilatation. The common duct measures 2.5 mm. The gallbladder is without evidence of stone or sludge. The gallbladder wall measures 1.3 mm and is within normal limits. The right kidney measures 9.8 cm. The right kidney is normal in contour, size, and shape. The echogenicity is normal. There is no hydronephrosis. The pancreas is not well visualized due to overlying bowel gas. IMPRESSION: 1. Unremarkable right upper quadrant sonogram.
[2025-09-02] MEDS: SODIUM CHLORIDE 0.9% 1,000 ML IV ONE (10:45)
[2025-09-02 11:12] LABS: INR 1.04 (0.9-1.15); Partial Thromboplastin Time 25.6 SEC (24.5-34.5); Prothrombin Time 11.0 sec (9.3-11.8)
--- NOTE | 2025-09-02 13:07 | DVH ---
EXAM: CT HEAD WITHOUT CONTRAST INDICATION: syncope Comparison: MRI brain 04/22/2024 TECHNIQUE: CT of the head without intravenous contrast. Radiation Dose Information: CT Dose: CTDI volume is 50.87 mGy. Dose-length product is 837.31 mGy*cm The dose indicators for CT are the volume Computed Tomography (CT) Dose Index (CTDIvol) and the Dose Length Product (DLP), and are measured in units of mGy and mGy-cm, respectively. These indicators are not patient dose, but values generated from the CT scanner acquisition factors. The report includes radiation exposure data for exposures received during this examination. COMPARISON: MRI BRAIN HEAD WO CONTRAST on DOS: 04/22/24, CT HEAD WITHOUT CONTRAST on DOS: 04/22/24, HEAD WITHOUT CONTRAST on DOS: 11/11/21 FINDINGS: There is no evidence of acute intracranial hemorrhage, extra-axial collection, mass effect, midline shift, herniation or hydrocephalus. The ventricles, sulci and cisterns are age appropriate. The alston-white differentiation is intact. Patchy periventricular and subcortical white matter hypoattenuation is nonspecific but may be related to small vessel ischemic disease. The visualized paranasal sinuses and mastoid air cells are clear. The surrounding soft tissues and osseous structures are unremarkable. IMPRESSION: 1. No acute intracranial abnormality.
[2025-09-02] MEDS: SODIUM CHLORIDE 0.9% 500 ML IV ONE (14:25)
[2025-09-02] MEDS: ERGOCALCIFEROL 50,000 UNIT(1.25MG) CAP PO SCH (15:00)
[2025-09-02 15:37] LABS: Free T4 (Free Thyroxine) 1.33 ng/dL (0.89-1.76)
[2025-09-02 17:54] LABS: Albumin 4.2 g/dL (3.2-4.8); Anion Gap 7 (5-15); BUN/Creatinine Ratio 11.1 (10.0-20.0); Bilirubin, Total 0.5 mg/dL (0.2-1.0); Calcium 9.4 mg/dL (8.7-10.4); Carbon Dioxide 26 mmol/L (20-31); Sodium 141 mmol/L (136-145); Total Protein 7.2 g/dL (5.7-8.2)
[2025-09-02 17:56] LABS: Alanine Aminotransferase 203 U/L (7-40); Alkaline Phosphatase 130 U/L (46-116); Blood Urea Nitrogen 7 mg/dL (9-23); Chloride 108 mmol/L (98-107); Glucose 132 mg/dL (74-106); Potassium 3.5 mmol/L (3.5-5.1)
--- NOTE | 2025-09-02 19:25 | DVHPNRES ---
Progress Note Date Seen: Sep 02, 2025 Resident Creating Document: SARAI KHAN RESIDENT Has the PT tested + for MRSA If YES, has PT been informed?: No Medical Necessity Reason Pt with a Central, PICC or Fol: No Subjective Review of Systems Mrs. Le is a 29-year-old female, with past history of asthma, anxiety, and vertigo who presented to [facility] ED for evaluation of a syncopal episode. Patient reports that, she was in the shower when she tried to grab her clothes from the bathroom and suddenly began to experience dizziness, spinning room, and passed out. Patient reports that she woke up on the floor, her children witnesses patient passing out for few minutes associated with generalized shaking, substernal chest pain, and weakness. Patient was seen and evaluated in the ED, laboratory data shows WBC 7.2, hemoglobin 11.7, hematocrit 34.2, platelets 316, sodium 140, potassium 3.6, BUN 11, creatinine 0.56, GFR 125, glucose 104, calcium 9.9, troponin 5, blood pressure 76/50 trending up to 103/67, heart rate 55, temperature 98.3 F, O2 saturation 98% on room air. Chest x-ray show no acute disease. On my assessment, patient denied chest pain, no headache, dizziness, diaphoresis, shortness of breaths, fever, no chills. Patient was admitted for further evaluation and medical management. Past Medical History: Anxiety, Asthma, Vertigo, Conversion hysteria reaction Past Surgical History: 5 Family History: Reviewed, noncontributory to the management of this case. Past Social History: The patient lives at home, denies smoking, alcohol or illicit drugs abuse. Hospital course: The patient was evaluated and examined at bedside. VS, labs and chart were reviewed. The patient reports still has general weakness, dizziness and headache 8/10, continues, pressure-like, diffused over her head, no irradiation. Toradol was given. CT head showed: No acute intracranial abnormality. Patchy periventricular and subcortical white matter hypoattenuation is nonspecific but may be related to small vessel ischemic disease. Also, on further questioning, the patient reported that she had nausea and vomit #2 of gastric content prior of her admission. The patient was on norepinephrine due to low blood pressure on admission also midrodine was given to improved BP. The BP is still in the low side, we add 500ml NS bolus. Due to elevated FLTs, US was ordered, it showed: Unremarkable right upper quadrant sonogram. Orthostatic vital signs were ordered. Psychiatry is on board due to anxiety, they recommended to increase dose of sertraline. We will continue monitoring the progress of this patient closely. ROS: Constitutional: Yes: general weakness; No: Fever, Chills, Sweats, Malaise, Other Eyes: No: Pain, Vision change, Conjunctivae inflammation, Eyelid inflammation, Other, Redness HENT: Headache 8/10 dizziness. No: Ear pain, Ear discharge, Nose pain, Nose discharge, Nose congestion, Mouth pain, Mouth swelling, Throat pain, Throat swelling, Other Respiratory: No: Cough, Dry, Shortness of breath, SOB with excertion, Wheezing, Hemoptysis, Pleuritic Pain, Sputum, Wheezing, Other Cardiovascular: No: Chest Pain, Palpitations, Orthopnea, Paroxysmal Noc. Dyspnea, Edema, Lt Headedness, Other Gastrointestinal: No: Nausea, Vomiting, Abdominal Pain, Diarrhea, Constipation, Melena, Hematochezia, Other Genitourinary: No Dysuria, No Frequency, No Incontinence, No Hematuria, No Retention, No Other Musculoskeletal: No: other, neck pain, shoulder pain, arm pain, back pain, hand pain, leg pain, foot pain Skin: No: Rash, Lesions, Jaundice, Bruising, Other Neurological: Other (Syncope); No: Weakness, Numbness, Incoordination, Change in speech, Confusion, Seizures Allergies: Morphine. Objective vital signs Vital Sign Date Time Temp Pulse Resp B/P (MAP) Pulse Ox O2 Delivery O2 Flow Rate FiO2 09/02/25 17:00 97.9 67 18 92/50 (64) 96 97.9 09/02/25 16:00 Room Air* 0 21 Total Intake and Output 09/01/25 09/01/25 09/02/25 15:00 23:00 07:00 Intake Total 500 ml Balance 500 ml medications Current Medications Medications Dose Ordered Sig/Jazmyn Route Start Time Stop Time Status Last Admin Dose Admin Sertraline HCl 50 mg DAILY PO 09/01/25 10:00 09/02/25 10:19 50 MG Alprazolam 0.25 mg Q8HP PRN PO 09/01/25 09:15 Meclizine HCl 25 mg Q8HPRN PRN PO 09/01/25 09:15 09/02/25 09:22 25 MG Sodium Chloride 10 ml Q8HR IV 09/01/25 14:00 09/02/25 09:22 10 ML Ondansetron HCl 4 mg Q4HP PRN IV 09/01/25 09:15 09/01/25 12:04 4 MG Docusate Sodium 100 mg BIDPRN PRN PO 09/01/25 09:15 Acetaminophen 650 mg Q6HP PRN PO 09/01/25 09:15 09/02/25 18:16 650 MG Nitroglycerin 0.4 mg Q5MINP PRN SL 09/01/25 11:45 Morphine Sulfate 2 mg Q30M PRN IV 09/01/25 11:45 Hold Midodrine 10 mg TIDWM PO 09/01/25 18:00 09/02/25 18:16 10 MG Pantoprazole Sodium 40 mg DAILY IV 09/03/25 10:00 Enoxaparin Sodium 40 mg DAILY SC 09/03/25 10:00 Ergocalciferol 50,000 unit Q7D PO 09/02/25 15:00 09/02/25 15:00 50,000 UNIT Examination General Appearance: Alert, Oriented X3, Cooperative, No acute distress HEENT: Atraumatic, PERRLA, EOMI, Mucous membr. moist/pink Respiratory: Normal air movement Cardiovascular: Regular rate, Normal S1, Normal S2, No murmurs Abdominal: Tenderness over right upper quadrant. Normal bowel sounds, Soft, No tenderness, No hepatospenomegaly, No masses Extremities: No clubbing, No cyanosis, No edema, Normal pulses, No tenderness/swelling Skin: No rashes, No significant lesion Neuro: Normal speech, Normal tone, Sensation intact, Cranial nerves 3-12 NL, Reflexes 2+, Other (Generalized weakness) Psych/Mental Status: Mental status NL, Mood NL laboratory and microbiology Laboratory Tests 09/02/25 17:00 09/02/25 03:48 Test 09/02/25 17:00 Range/Units Serum Glucose 132 H 74-106 mg/dL Problem List/Assessment/Plan Problem List/Assessment/Plan #Syncopal and collapse episode, possible Vaso-vagal syncope #Orthostatic hypotension, unspecified #Generalized weakness due to the above #Ruled out TIA #Rule out CVA Management of fluids and electrolytes Diagnostic tests chest x-ray Orthostatic Vitals NS IV fluids Midrodine CT head #PO intolerance, possible acute gastroenteritis bacterial vs viral Covid/Flu test Zofran 4mg IV IV fluids Stool WBC Stool ova and parasite. #Acute Symptomatic Bradycardia HR: 52 EKG: Synus bradycardia ECHO Consider cardiology consult #Chronic Paroxysmal Vertigo Meclizine 25mg po tid Fall precautions #Acute Transaminitis AST: 207 ALT: 224 US liver Hepatic panel IV fluids Monitor LFPs Avoid hepatotoxic drugs #Chronic asthma, no in exacerbation Continue home meds #Chronic Anxiety #Chronic Depression Sertraline 25mg po daily Psychiatry tele consult: increase sertraline to 50mg po daily. Diet Cardiac diet DVT prophylaxis: Lovenox GI prophylaxis: Protonix Code status: full code Disposition:telemetry PCP: Non Patient's status and plan discussed with the patient and friend >30min. Case discussed with Dr. Castellanos Plan discussed with: Patient My Orders My Orders Orders - SARAI KHAN RESIDENT Procedure Category Date Status Time Sodium Chloride 0.9% PHA 09/02/25 In Process 10:45 Soc Telemed Psych CONS 09/02/25 Transmitted Consult 10:44 Pantoprazole PHA 09/03/25 In Process (Protonix) 10:00 Enoxaparin Sodium PHA 09/03/25 In Process (Lovenox) 10:00 Covid19 Antigen [facility] LAB 09/02/25 Transmitted Rapid Influenza A&B LAB 09/02/25 Transmitted 18:20 Complete Blood Count LAB 09/03/25 Verified 04:00 Basic Metabolic Panel LAB 09/03/25 Verified 04:00 Visit Coding STANDARD RES Billing Provider: KEIRA YANG MD Date of Service if different f: Sep 02, 2025 Common Visit Codes: [id number] INP/OBS CARE(HIGH) SARAI KHAN RESIDENT Sep 02, 2025 19:25
[2025-09-02 21:12] LABS: COVID19 ANTIGEN SOFIA FIA NEGATIVE (NEGATIVE)
--- NOTE | 2025-09-02 21:27 | DVHSR ---
APPROVED REPORT EXAM: Two-dimensional and M-mode echocardiogram with Doppler and color Doppler. Blood Pressure: 135/79 mmHg INDICATION Syncope RISK FACTORS Height: 60, Weight: 130 DIMENSIONS LVDd 4.3 (3.8-5.7cm) LA (2D) 3.7 (1.9-4.0cm) Aortic Root 3.0 (2.0-3.7cm) LVDs 2.8 (2.5-4.0cm) LA (MM) (1.9-4.0cm) Aortic Cusp Exc 1.5 (1.5-2.0cm) EF (%) 64.0 (55-70%) Rt. Atrium 3.1 (1.9-4.0cm) Asc. Aorta cm Mitral Valve Mitral Mitral Stenosis E wave 0.64m/s MV Mean GR. mmHg A wave 0.42m/s MV Peak GR. mmHg E/A ratio 1.5 2D MVA cm2 DECEL Time 330ms PRESS 1/2 Time 58ms IVRT ms Dop MVA 3.78cm2 Aortic Valve Aortic Valve Aortic Stenosis V1 1.06m/s AO Mean GR. 3mmHg V2 1.14m/s AO Peak GR. 5mmHg LVOT Diameter 1.7 (1.8-2.4cm) Doppler QUINTON 2.11cm2 Pulmonic Valve V2 0.80m/s Conclusion Left ventricle: The cavity size is normal. Systolic function is normal. The ejection fraction is 60-65%. Diastolic function is normal. Right ventricle: Systolic function is normal. There is no significant valvulopathy. Pericardium: There is no pericardial effusion. Inferior vena cava: The vessel is normal in size with normal respiratory phasic variation.
[2025-09-03 00:33] VITALS: BP 100/63; PULSE 63; RESP 18; TEMP 98; O2SAT 97
[2025-09-03 05:00] VITALS: BP 99/67; PULSE 70; RESP 16; TEMP 97.8; O2SAT 98
--- NOTE | 2025-09-03 07:19 | DVHINCON2 ---
Date of Service if different f: Sep 02, 2025 Time of Service: 19:30 Consultation ([place]) Labs Laboratory Tests Test 09/01/25 01:02 09/01/25 17:06 09/01/25 17:40 09/02/25 03:48 Troponin I High Sensitivity 5 ng/L (</=34) Urine Color Light-yellow (Yellow) Urine Clarity Turbid (Clear) Urine pH 6.5 (5.0-9.0) Urine Specific [place] 1.014 (1.001-1.035) Urine Protein Negative (Negative) Urine Ketones Trace (Negative) Urine Blood Trace /uL (Negative) Urine Nitrite 1+ (Negative) Urine Bilirubin Negative (Negative) Urine Urobilinogen Normal mg/dL (Negative) Urine Leukocyte Esterase Trace /uL (Negative) Urine RBC 2 /hpf (0 - 4) Urine Microscopic WBC 3 /HPF (0-5) Urine Squamous Epithelial Cells Few /hpf (<5) Urine Bacteria Few /hpf (None Seen) Urine Glucose Normal mg/dL (Normal) Urine Opiates Screen Neg (NEGATIVE) Urine Fentanyl Screen Neg (NEGATIVE) Urine Barbiturates Screen Neg (NEGATIVE) Urine Phencyclidine Screen Neg (NEGATIVE) Urine Amphetamines Screen Neg (NEGATIVE) Urine Benzodiazepines Screen Neg (NEGATIVE) Urine Cocaine Screen Neg (NEGATIVE) Urine Cannabinoids Screen Neg (NEGATIVE) Lactic Acid Level 0.9 mmol/L (0.4-2.0) White Blood Count 6.0 10^3/uL (4.4-10.8) Red Blood Count 3.88 10^6/uL (4.0-5.20) Hemoglobin 11.2 g/dL (12.2-16.2) Hematocrit 33.6 % (36.0-46.0) Mean Corpuscular Volume 86.7 fL (80.0-100.0) Mean Corpuscular Hemoglobin 29.0 pg (28.0-32.0) Mean Corpuscular Hemoglobin Concent 33.5 g/dL (32.0-36.0) Red Cell Distribution Width 14.1 % (11.8-14.3) Platelet Count 287 10^3/uL (140-450) Mean Platelet Volume 7.7 fL (6.9-10.8) Neutrophils (%) (Auto) 62.6 % (37.0-80.0) Lymphocytes (%) (Auto) 24.4 % (10.0-50.0) Monocytes (%) (Auto) 6.5 % (0.0-12.0) Eosinophils (%) (Auto) 6.1 % (0.0-7.0) Basophils (%) (Auto) 0.4 % (0.0-2.0) Neutrophils # (Auto) 3.8 10 ^3/uL (1.6-8.6) Lymphocytes # (Auto) 1.5 10 ^3/uL (0.4-5.4) Monocytes # (Auto) 0.4 10 ^3/uL (0-1.3) Eosinophils # (Auto) 0.4 10 ^3/uL (0-0.8) Basophils # (Auto) 0 10 ^3/uL (0-0.2) Nucleated Red Blood Cells 0.1 % Hemoglobin A1c 5.6 % A1C (<5.7) Magnesium Level 2.0 mg/dL (1.6-2.6) B-Type Natriuretic Peptide 105.71 pg/mL (0-100) Thyroid Stimulating Hormone (TSH) 0.38 uIU/mL (0.55-4.78) Beta HCG, Quantitative 1.1 mIU/mL (1.5-4.2) Test 09/02/25 09:10 09/02/25 17:00 09/02/25 20:00 Prothrombin Time 11.0 sec (9.3-11.8) Prothromb Time International Ratio 1.04 (0.9-1.15) Activated Partial Thromboplast Time 25.6 SEC (24.5-34.5) Vitamin B12 Level 1042 pg/mL (211-911) Vitamin D 25-Hydroxy 20.1 ng/mL (30.0-100) Free Thyroxine (T4) Calculated 1.33 ng/dL (0.89-1.76) Total Triiodothyronine 1.34 ng/mL (0.60-1.81) Sodium Level 141 mmol/L (136-145) Potassium Level 3.5 mmol/L (3.5-5.1) Chloride Level 108 mmol/L (98-107) Carbon Dioxide Level 26 mmol/L (20-31) Anion Gap 7 (5-15) Blood Urea Nitrogen 7 mg/dL (9-23) Creatinine 0.63 mg/dL (0.550-1.02) Glomerular Filtration Rate Calc 122 mL/min (>90) BUN/Creatinine Ratio 11.1 (10.0-20.0) Serum Glucose 132 mg/dL (74-106) Calcium Level 9.4 mg/dL (8.7-10.4) Total Bilirubin 0.5 mg/dL (0.2-1.0) Aspartate Amino Transf (AST/SGOT) 136 U/L (13-40) Alanine Aminotransferase (ALT/SGPT) 203 U/L (7-40) Alkaline Phosphatase 130 U/L (46-116) Total Protein 7.2 g/dL (5.7-8.2) Albumin 4.2 g/dL (3.2-4.8) Influenza Type A Antigen Negative (Negative) Influenza Type B Antigen Negative (Negative) SARS-CoV-2 Antigen (Rapid) Negative (NEGATIVE) Vitals Vital Signs Date Time Temp Pulse Resp B/P (MAP) Pulse Ox O2 Delivery O2 Flow Rate FiO2 09/03/25 05:00 97.8 70 16 99/67 (78) 98 97.8 09/02/25 20:00 Room Air* 0 21 Current medications Current Medications Medications Dose Ordered Sig/Jazmyn Route Start Time Stop Time Status Last Admin Dose Admin Sertraline HCl 50 mg DAILY PO 09/01/25 10:00 09/02/25 10:19 50 MG Alprazolam 0.25 mg Q8HP PRN PO 09/01/25 09:15 Meclizine HCl 25 mg Q8HPRN PRN PO 09/01/25 09:15 09/02/25 09:22 25 MG Sodium Chloride 10 ml Q8HR IV 09/01/25 14:00 09/03/25 06:30 10 ML Ondansetron HCl 4 mg Q4HP PRN IV 09/01/25 09:15 09/01/25 12:04 4 MG Docusate Sodium 100 mg BIDPRN PRN PO 09/01/25 09:15 Acetaminophen 650 mg Q6HP PRN PO 09/01/25 09:15 09/02/25 18:16 650 MG Nitroglycerin 0.4 mg Q5MINP PRN SL 09/01/25 11:45 Morphine Sulfate 2 mg Q30M PRN IV 09/01/25 11:45 Hold Midodrine 10 mg TIDWM PO 09/01/25 18:00 09/02/25 18:16 10 MG Pantoprazole Sodium 40 mg DAILY IV 09/03/25 10:00 Enoxaparin Sodium 40 mg DAILY SC 09/03/25 10:00 Ergocalciferol 50,000 unit Q7D PO 09/02/25 15:00 09/02/25 15:00 50,000 UNIT PSYCHIATRY CONSULTATION INITIAL EVALUATION REASON FOR CONSULT: Mild depression HPI: 29yo W currently admitted to inpatient medical unit. On evaluation, pt says she has been depressed for some time, with symptoms including depressed mood, mood lability, tearfulness, lower energy, sadness. Pt denies current or prior SI. No history of suicide attempts, self-harm or access to firearms. She denies current or prior symptoms of elevated mood or psychosis. She denies prior psychiatric diagnosis or treatment, but is open to care. She was started on a medication in the hospital, says she thinks it is helping. She had a difficult interaction with a relative during which she was made to feel she is not important, and her being admitted is not important. Pt says usually, this would have caused her to spiral, to feel sad, cry, but she feels stable. She wants to continue medication and is open to outpatient referral. PSYCHIATRIC HISTORY: DIAGNOSIS: None prior ADMISSIONS: None prior MEDICATION TRIALS: None prior OUTPATIENT CARE: None prior THERAPY: None prior SI/SELF-INJURY/SUICIDE ATTEMPT: None prior SUBSTANCE USE: Denies any drugs or alcohol. RELEVANT MEDICAL HISTORY: Noncontributory MENTAL STATUS EXAMINATION: Patient is a 29-year-old woman, awake and alert, with fair grooming and appropriate hospital attire. She is calm, cooperative, and engaged throughout the interview, with good eye contact. Speech is normal in rate, rhythm, and volume. Mood is described as depressed for some time, though she reports feeling more stable since starting medication; affect is mildly dysphoric but appropriately reactive and congruent with discussed content. Thought process is linear, logical, and goal-directed. Thought content is without suicidal or homicidal ideation; she denies past or current self-harm, and denies hallucinations, delusions, or paranoia. No manic symptoms elicited. Cognition is grossly intact with intact attention during interview. Insight and judgment are good, as evidenced by appropriate help-seeking, medication adherence, and openness to outpatient follow-up. DIFFERENTIAL DIAGNOSIS: Unspecified Depressive Disorder Adjustment Disorder with depressed mood Major Depressive Disorder, single episode vs recurrent (mild) Rule out depressive disorder due to medical condition ASSESSMENT: 29-year-old woman currently admitted to a medical unit, evaluated for mild depressive symptoms (depressed mood, tearfulness, lower energy, mood lability). She consistently denies current or prior suicidal ideation, denies history of suicide attempts or self-harm, and denies access to firearms. There is no evidence of tuan or psychosis. She reports improvement and emotional stability since initiation of sertraline in the hospital and expresses motivation for ongoing treatment and outpatient follow-up. At this time, she does not meet criteria for involuntary psychiatric hold and there is no indication for inpa tient psychiatric admission. She is appropriate for continued medical management with outpatient mental health linkage at discharge. RECOMMENDATIONS: 1. Legal: No 5150 criteria met 2. Disposition: Continue medical treatment on the inpatient medical service. Provide outpatient mental health referrals at discharge. 3. Medications: Continue sertraline (Zoloft) 50 mg PO daily as started inpatient, as patient reports benefit and tolerability. 4. Medical considerations: Continue routine medical management; monitor for SSRI side effects (GI upset, headache, sleep changes). 5. Other / Resources: At discharge, provide outpatient psychiatry/therapy referral information and crisis resources (988, return to ED/911 if suicidal thoughts emerge, worsening depression, or inability to stay safe). Encourage establishment of psychotherapy/supportive counseling, particularly given identified interpersonal stressors. FLAQUITO VERGARA MD Sep 03, 2025 07:19
[2025-09-03 07:56] LABS: Hematocrit 33.4 % (36.0-46.0); Hemoglobin 11.2 g/dL (12.2-16.2); Mean Corpuscular Hemoglobin 29.1 pg (28.0-32.0); Mean Corpuscular Volume 86.6 fL (80.0-100.0); Nucleated Red Blood Cells % 0.0 %; Potassium 3.9 mmol/L (3.5-5.1); Sodium 143 mmol/L (136-145)
[2025-09-03 07:57] LABS: Anion Gap 8 (5-15); Calcium 9.0 mg/dL (8.7-10.4); Carbon Dioxide 26 mmol/L (20-31)
[2025-09-03 08:02] LABS: BUN/Creatinine Ratio 11.3 (10.0-20.0); Chloride 109 mmol/L (98-107); Glucose 87 mg/dL (74-106)
[2025-09-03 08:03] LABS: Blood Urea Nitrogen 7 mg/dL (9-23)
[2025-09-03 08:20] VITALS: PULSE 59; O2SAT 98
[2025-09-03 09:00] VITALS: BP 88/56; PULSE 61; RESP 18; TEMP 98.7; O2SAT 98
[2025-09-03] MEDS: PANTOPRAZOLE 40 MG/10 ML VIAL INJ IV SCH (09:39)
[2025-09-03] MEDS: ENOXAPARIN SOD 40 MG/0.4 ML SYRINGE SC SCH (09:40)
[2025-09-03 11:11] LABS: Albumin 4.1 g/dL (3.2-4.8); Bilirubin, Direct 0.1 mg/dL (<0.3); Bilirubin, Total 0.4 mg/dL (0.2-1.0); Total Protein 6.8 g/dL (5.7-8.2)
[2025-09-03 11:12] LABS: Alanine Aminotransferase 177.0 U/L (7-40); Alkaline Phosphatase 117.0 U/L (46-116)
[2025-09-03] MEDS: SODIUM CHLORIDE 0.9% 500 ML IV ONE (12:25)
[2025-09-03] MEDS ORDERED: SERT-206 PO (12:39)
[2025-09-03] MEDS ORDERED: ONDA4INJ5 IV (12:39)
[2025-09-03] MEDS ORDERED: MID10T PO (12:39)
[2025-09-03] MEDS ORDERED: MECL-90 PO (12:39)
--- NOTE | 2025-09-03 12:40 | DVHDSRES ---
Discharge Summary Date of Admission Resident Creating Document: SARAI KHAN RESIDENT Sep 01, 2025 at 11:33 Date of Discharge: Sep 03, 2025 Admitting Diagnosis #Syncopal and collapse episode, possible Vaso-vagal syncope #Possible Orthostatic hypotension, unspecified #Generalized weakness due to the above #Rule out TIA #Rule out CVA #PO intolerance, possible acute gastroenteritis bacterial vs viral #Acute Symptomatic Bradycardia #Chronic Paroxysmal Vertigo #Acute Transaminitis #Chronic asthma, no in exacerbation #Chronic Anxiety #Chronic Depression Labs/Diagnostic Data: Laboratory Results Test 09/03/25 10:35 09/03/25 07:14 09/02/25 20:00 09/02/25 09:10 Total Bilirubin 0.4 mg/dL (0.2-1.0) Direct Bilirubin 0.1 mg/dL (<0.3) Aspartate Amino Transferase (AST) 98 U/L (13-40) Alanine Aminotransferase (ALT) 177 U/L (7-40) Alkaline Phosphatase 117 U/L (46-116) Total Protein 6.8 g/dL (5.7-8.2) Albumin 4.1 g/dL (3.2-4.8) White Blood Count 4.6 10^3/uL (4.4-10.8) Red Blood Count 3.85 10^6/uL (4.0-5.20) Hemoglobin 11.2 g/dL (12.2-16.2) Hematocrit 33.4 % (36.0-46.0) Mean Corpuscular Volume 86.6 fL (80.0-100.0) Mean Corpuscular Hemoglobin 29.1 pg (28.0-32.0) Mean Corpuscular Hemoglobin Concent 33.6 g/dL (32.0-36.0) Red Cell Distribution Width 14.2 % (11.8-14.3) Platelet Count 280 10^3/uL (140-450) Mean Platelet Volume 7.5 fL (6.9-10.8) Neutrophils (%) (Auto) 46.8 % (37.0-80.0) Lymphocytes (%) (Auto) 32.7 % (10.0-50.0) Monocytes (%) (Auto) 9.0 % (0.0-12.0) Eosinophils (%) (Auto) 10.8 % (0.0-7.0) Basophils (%) (Auto) 0.7 % (0.0-2.0) Neutrophils # (Auto) 2.1 10 ^3/uL (1.6-8.6) Lymphocytes # (Auto) 1.5 10 ^3/uL (0.4-5.4) Monocytes # (Auto) 0.4 10 ^3/uL (0-1.3) Eosinophils # (Auto) 0.5 10 ^3/uL (0-0.8) Basophils # (Auto) 0 10 ^3/uL (0-0.2) Nucleated Red Blood Cells 0.0 % Sodium Level 143 mmol/L (136-145) Potassium Level 3.9 mmol/L (3.5-5.1) Chloride Level 109 mmol/L (98-107) Carbon Dioxide Level 26 mmol/L (20-31) Anion Gap 8 (5-15) Blood Urea Nitrogen 7 mg/dL (9-23) Creatinine 0.62 mg/dL (0.550-1.02) Glomerular Filtration Rate Calc 122 mL/min (>90) BUN/Creatinine Ratio 11.3 (10.0-20.0) Serum Glucose 87 mg/dL (74-106) Calcium Level 9.0 mg/dL (8.7-10.4) Influenza Type A Antigen Negative (Negative) Influenza Type B Antigen Negative (Negative) SARS-CoV-2 Antigen (Rapid) Negative (NEGATIVE) Prothrombin Time 11.0 sec (9.3-11.8) Prothrombin Time INR 1.04 (0.9-1.15) Activated Partial Thromboplast Time 25.6 SEC (24.5-34.5) Vitamin B12 Level 1042 pg/mL (211-911) Vitamin D 25-Hydroxy 20.1 ng/mL (30.0-100) Free Thyroxine (T4) Calculated 1.33 ng/dL (0.89-1.76) Total Triiodothyronine (TT3) 1.34 ng/mL (0.60-1.81) Test 09/02/25 03:48 09/01/25 17:40 09/01/25 17:06 09/01/25 01:02 Hemoglobin A1c 5.6 % A1C (<5.7) Magnesium Level 2.0 mg/dL (1.6-2.6) B-Type Natriuretic Peptide 105.71 pg/mL (0-100) Thyroid Stimulating Hormone (TSH) 0.38 uIU/mL (0.55-4.78) Beta HCG, Quantitative 1.1 mIU/mL (1.5-4.2) Lactic Acid Level 0.9 mmol/L (0.4-2.0) Urine Color Light-yellow (Yellow) Urine Clarity Turbid (Clear) Urine pH 6.5 (5.0-9.0) Urine Specific [place] 1.014 (1.001-1.035) Urine Protein Negative (Negative) Urine Ketones Trace (Negative) Urine Blood Trace /uL (Negative) Urine Nitrite 1+ (Negative) Urine Bilirubin Negative (Negative) Urine Urobilinogen Normal mg/dL (Negative) Urine Leukocyte Esterase Trace /uL (Negative) Urine RBC 2 /hpf (0 - 4) Urine Microscopic WBC 3 /HPF (0-5) Urine Squamous Epithelial Cells Few /hpf (<5) Urine Bacteria Few /hpf (None Seen) Urine Glucose Normal mg/dL (Normal) Urine Opiates Screen Neg (NEGATIVE) Urine Fentanyl Screen Neg (NEGATIVE) Urine Barbiturates Screen Neg (NEGATIVE) Urine Phencyclidine Screen Neg (NEGATIVE) Urine Amphetamines Screen Neg (NEGATIVE) Urine Benzodiazepines Screen Neg (NEGATIVE) Urine Cocaine Screen Neg (NEGATIVE) Urine Cannabinoids Screen Neg (NEGATIVE) Troponin I High Sensitivity 5 ng/L (</=34) Other Laboratory Tests 09/03/25 07:14 Brief Hx & Hospital Course: PHI: Mrs. Le is a 29-year-old female, with past history of asthma, anxiety, and vertigo who presented to [facility] ED for evaluation of a syncopal episode. Patient reports that, she was in the shower when she tried to grab her clothes from the bathroom and suddenly began to experience dizziness, spinning room, and passed out. Patient reports that she woke up on the floor, her children witnesses patient passing out for few minutes associated with generalized shaking, substernal chest pain, and weakness. Patient was seen and evaluated in the ED, laboratory data shows WBC 7.2, hemoglobin 11.7, hematocrit 34.2, platelets 316, sodium 140, potassium 3.6, BUN 11, creatinine 0.56, GFR 125, glucose 104, calcium 9.9, troponin 5, blood pressure 76/50 trending up to 103/67, heart rate 55, temperature 98.3 F, O2 saturation 98% on room air. Chest x-ray show no acute disease. On my assessment, patient denied chest pain, no headache, dizziness, diaphoresis, shortness of breaths, fever, no chills. Patient was admitted for further evaluation and medical management. Past Medical History: Anxiety, Asthma, Vertigo, Conversion hysteria reaction Past Surgical History: 5 Family History: Reviewed, noncontributory to the management of this case. Past Social History: The patient lives at home, denies smoking, alcohol or illicit drugs abuse. Hospital Course: During the admission the patient was evaluated and assessed at bedside. VS, labs and chart were reviewed every day. The patient reported general weakness, dizziness and headache 8/. Toradol was given, improving patient's headache. The CT head showed: No acute intracranial abnormality. Patchy periventricular and subcortical white matter hypoattenuation is nonspecific but may be related to small vessel ischemic disease. The patient was on norepinephrine due to low blood pressure on admission,.Also, to improved low BP midrodine and 500ml NS bolus were given. BP improved and patient reported headache resolved, abdominal pain and nausea resolved and feeling better. Orthostatic vital signs were ordered, this were wnl. Due to elevated FLTs, US was ordered, it showed: U nremarkable right upper quadrant sonogram. Psychiatry was board due to anxiety, they recommended to increase dose of sertraline to 50mg daily. Today, 09/03/25, due to clinical improvement the patient will be discharge home, she will f/u in d/c clinic and with PCP in 1 week for [place] and ANCA labs results to ruled out autoimmune conditions. All patient's question were answered satisfactorily, warning signs and when to return to the ED recommendations were given, patient agreed to understanding. ROS: Constitutional: No: Fever, Chills, Sweats, Malaise, Other Eyes: No: Pain, Vision change, Conjunctivae inflammation, Eyelid inflammation, Other, Redness HENT: No: headache, dizziness, Ear pain, Ear discharge, Nose pain, Nose discharge, Nose congestion, Mouth pain, Mouth swelling, Throat pain, Throat swelling, Other Respiratory: No: Cough, Dry, Shortness of breath, SOB with excertion, Wheezing, Hemoptysis, Pleuritic Pain, Sputum, Wheezing, Other Cardiovascular: No: Chest Pain, Palpitations, Orthopnea, Paroxysmal Noc. Dyspnea, Edema, Lt Headedness, Other Gastrointestinal: No: Nausea, Vomiting, Abdominal Pain, Diarrhea, Constipation, Melena, Hematochezia, Other Genitourinary: No Dysuria, No Frequency, No Incontinence, No Hematuria, No Retention, No Other Musculoskeletal: No: other, neck pain, shoulder pain, arm pain, back pain, hand pain, leg pain, foot pain Skin: No: Rash, Lesions, Jaundice, Bruising, Other Neurological: Other (Syncope); No: Weakness, Numbness, Incoordination, Change in speech, Confusion, Seizures Allergies: Morphine. Physical exam: General Appearance: Alert, Oriented X3, Cooperative, No acute distress HEENT: Atraumatic, PERRLA, EOMI, Mucous membr. moist/pink Respiratory: Normal air movement Cardiovascular: Regular rate, Normal S1, Normal S2, No murmurs Abdominal: Normal bowel sounds, Soft, No tenderness, No hepatospenomegaly, No masses Extremities: No clubbing, No cyanosis, No edema, Normal pulses, No tenderness/swelling Skin: No rashes, No significant lesion Neuro: Normal speech, Normal tone, Sensation intact, Cranial nerves 3-12 NL, Reflexes 2+, Other (Generalized weakness) Psych/Mental Status: Mental status NL, Mood NL Plan: D/C home, no needs Continue Mezicline prn for vertigo Continue with medridone for low BP <90/60 Sertraline 50mg po daily F/U with PCP in 1 week, follow up [place] lab results. F/U in D/C clinic within 72hrs. follow up [place] lab results. Consults/Reason for consult Pschyatry: anxiety Operations or Procedures PROCEDURE(s): CXR1 - CHEST XRAY 1 VIEW REASON: syncope ORDER NUMBER(s): [id number], ACCESSION NUMBER(s): [id number] CHEST RADIOGRAPH INDICATION: syncope TECHNIQUE: Single frontal view of the chest was obtained COMPARISON: XY CHEST PORTABLE on DOS: 02/05/25, CHEST PORTABLE on DOS: 05/06/22, CXRP on DOS: 05/06/22, CHEST PORTABLE on DOS: 03/13/21 FINDINGS: Lungs and pleural spaces are clear. Cardiac silhouette and han are within normal limits. Bones and soft tissues demonstrate no significant abnormality. IMPRESSION: No acute disease. ATED BY: JERONIMO ONTIVEROS MD DICTATED DATE/TIME: 09/01/25126 SIGNED BY: JERONIMO ONTIVEROS MD SIGNED DATE/TIME: 09/01/25126 PROCEDURE(s): HWOCT - HEAD WITHOUT CONTRAST REASON: syncope ORDER NUMBER(s): [id number], ACCESSION NUMBER(s): [id number] EXAM: CT HEAD WITHOUT CONTRAST INDICATION: syncope Comparison: MRI brain 04/22/2024 TECHNIQUE: CT of the head without intravenous contrast. Radiation Dose Information: CT Dose: CTDI volume is 50.87 mGy. Dose-length product is 837.31 mGy*cm The dose indicators for CT are the volume Computed Tomography (CT) Dose Index (CTDIvol) and the Dose Length Product (DLP), and are measured in units of mGy and mGy-cm, respectively. These indicators are not patient dose, but values generated from the CT scanner acquisition factors. The report includes radiation exposure data for exposures received during this examination. COMPARISON: MRI BRAIN HEAD WO CONTRAST on DOS: 04/22/24, CT HEAD WITHOUT CONTRAST on DOS: 04/22/24, HEAD WITHOUT CONTRAST on DOS: 11/11/21 FINDINGS: There is no evidence of acute intracranial hemorrhage, extra-axial collection, mass effect, midline shift, herniation or hydrocephalus. The ventricles, sulci and cisterns are age appropriate. The alston-white differentiation is intact. Patchy periventricular and subcortical white matter hypoattenuation is nonspecific but may be related to small vessel ischemic disease. The visualized paranasal sinuses and mastoid air cells are clear. The surrounding soft tissues and osseous structures are unremarkable. IMPRESSION: 1. No acute intracranial abnormality. ATED BY: AJITH ESCUDERO MD DICTATED DATE/TIME: 09/02/25 1305 PROCEDURE(s): LIVUS - LIVER REASON: transamnitis ORDER NUMBER(s): [id number], ACCESSION NUMBER(s): [id number] INDICATION: transamnitis TECHNIQUE: Multiple real-time sonographic images were obtained of the right upper quadrant. COMPARISON: US ABDOMEN COMPLETE SONOGRAM on DOS: 04/23/24 FINDINGS: The liver demonstrates heterogeneous echotexture without focal mass lesions. There is no intrahepatic or extrahepatic ductal dilatation. The common duct measures 2.5 mm. The gallbladder is without evidence of stone or sludge. The gallbladder wall measures 1.3 mm and is within normal limits. The right kidney measures 9.8 cm. The right kidney is normal in contour, size, and shape. The echogenicity is normal. There is no hydronephrosis. The pancreas is not well visualized due to overlying bowel gas. IMPRESSION: 1. Unremarkable right upper quadrant sonogram. ATED BY: AJITH ESCUDERO MD DICTATED DATE/TIME: 09/02/25947 Condition at Discharge: Stable Final Diagnosis/Problems List #Syncopal and collapse episode, possible Vaso-vagal syncope #Ruled out Orthostatic hypotension, unspecified #Generalized weakness due to the above #Ruled out TIA #Ruled out CVA #PO intolerance, possible acute gastroenteritis bacterial vs viral #Acute Symptomatic Bradycardia #Chronic Paroxysmal Vertigo #Acute Transaminitis possible viral vs autoimune dissease. #Chronic asthma, no in exacerbation #Chronic Anxiety #Chronic Depression Discharge Disposition: Home SNF Discharge Will this Physician continue t: No Discharge Instruct/Medications Diet: Regular Activity: No Restrictions, As Tolerated Scheduled Midodrine HCl (Midodrine HCl), 10 MG PO TIDWM Multiple Vitamin (Multivitamins), 1 TAB PO DAILY, (Reported) Sertraline Hcl (Sertraline Hcl), 1 TAB PO DAILY Scheduled PRN Albuterol Sulfate (Ventolin Mdi), 90 MCG IN QID PRN Meclizine Hcl (Meclizine Hcl), 25 MG PO Q8HPRN PRN Ondansetron HCl (Ondansetron Hydrochloride), 4 MG IV Q4HP PRN Discontinued Medications Sertraline Hcl (Zoloft), 25 MG PO DAILY Discharge Statement: "Patient was advised to return to the ER or call 911 if any headaches, dizziness, shortness of breath, chest pain, abdominal pain, bleeding, fevers, or worsening of medical condition. Patient was counseled about treatment plan, medications, possible side effects, patientverbalized understanding. All questions were answered to the best of my ability. This discharge took greater then 30 minutes in planning, reviewing documentation, counseling the patient, and discussing with other team members." Discharge Care Plan Instructions Take Rx medications, Notify MD of any issues, Keep list of meds w/ you, Do not drink ETOH/smoke, Call 911 in an emergency, F/U w/ PCP ASSESSMENT ASSESSMENT Assessment #Syncopal and collapse episode, possible Vaso-vagal syncope #Orthostatic hypotension, unspecified #Generalized weakness due to the above #Ruled out TIA #Rule out CVA #PO intolerance, possible acute gastroenteritis bacterial vs viral #Acute Symptomatic Bradycardia #Chronic Paroxysmal Vertigo #Acute Transaminitis #Chronic asthma, no in exacerbation #Chronic Anxiety #Chronic Depression Diet Cardiac diet Code status: full code Disposition: Home no needs. PCP: Non, D/C clinic Patient's status and discharge plan discussed with the patient and friend >30min. Patient agrees with the discharge plan Case discussed with Dr. Castellanos Visit Coding STANDARD RES Billing Provider: KEIRA YANG MD Date of Service if different f: Sep 03, 2025 Common Visit Codes: 31648-JCY/OBS DISCH DAY >30min SARAI KHAN RESIDENT Sep 03, 2025 12:40
[2025-09-03 12:51] VITALS: BP 90/56; PULSE 66; RESP 20; TEMP 99.2; O2SAT 98
[2025-09-03 14:12] VITALS: TEMP 37.3
== END 2025-09-03 15:50 | disposition home or self-care (01) | DRG 720 ==
LOC: EDBD 23:31 → ER 23:31 → EDUNIT# 23:31 → OVERFLOW 09-01 11:33 → TELE-CENTR 09-02 16:00
PROVIDERS: ADMIT Student in an Organized Health Care Education/Training Program; ATTEND Student in an Organized Health Care Education/Training Program
DX: A41.9 Sepsis, unspecified organism (principal); R65.21 Severe sepsis with septic shock; A04.9 Bacterial intestinal infection, unspecified; J45.909 Unspecified asthma, uncomplicated; F32.A Depression, unspecified; M35.9 Systemic involvement of connective tissue, unspecified; A08.4 Viral intestinal infection, unspecified; R55 Syncope and collapse; F41.9 Anxiety disorder, unspecified; F43.21 Adjustment disorder with depressed mood; R74.01 Elevation of levels of liver transaminase levels; Z88.5 Allergy status to narcotic agent; Z82.49 Family history of ischemic heart disease and other diseases of the circulatory system; Z79.899 Other long term (current) drug therapy
CPT/HCPCS: 36415; 70450; 71045; 76705; 80048; 80053; 80076; 80307; 81001; 82306; 82607; 83036; 83605; 83735; 83880; 84439; 84443; 84480; 84484; 84702; 85025; 85610; 85730; 86038; 87426; 87804; 93005; 93306; 96374; G0378; J1885; J2405; J2470; Q0162